=== PATIENT | female | born 1965 | race American Indian/Alaskan Native ===

== ENCOUNTER 2019-01-12 12:55 | Observation (INO) | payer BC ==
--- NOTE | 2019-01-12 13:55 | Event Note ---
ED Screening Note Date of service: 01/12/19 Time: 13:51 ED Screening Note: 53 y/o female comes in for chest pain intermittent sharp pain for weeks migraine since last night n/v this morning. This initial assessment/diagnostic orders/clinical plan/treatment(s) is/are subject to change based on patients health status, clinical progression and re- assessment by fellow clinical providers in the ED. Further treatment and workup at subsequent clinical providers discretion. Patient/guardian urged not to elope from the ED as their condition may be serious if not clinically assessed and managed. Initial orders include:
[2019-01-12 14:37] LABS: BUN/Creatinine Ratio 11; Blood Urea Nitrogen 9 mg/dL (7-17); Calcium 9.5 mg/dL (8.4-10.2); Hemolysis Index 6
[2019-01-12] MEDS ORDERED: NACL 0.9% 1000 ML 1,000 ML IV ONE (15:25)
[2019-01-12] MEDS ORDERED: ZOFRAN IV ONE (15:25)
[2019-01-12] MEDS ORDERED: DILAUDID IV ONE ×2 (15:25→16:51)
--- NOTE | 2019-01-12 15:30 | Emergency Department Report ---
ED Headache HPI - General Chief Complaint: Chest Pain Stated Complaint: N/D SEVERE HEADACHE/CHEST PAIN Time Seen by Provider: 01/12/19 13:51 Source: patient Exam Limitations: no limitations - History of Present Illness Initial Comments: 53 year old female with a past medical history of migraines, fibromyalgia, mitral valve prolapse, IBS, depression, and previous hypertension (not currently on meds) presents to the Hospital complaining of headache similar to previous migraines since last night and intermittent chest pain. Patient states that since last night she has had a 10/10 throbbing frontal and bitemporal headache. Photophobia mild blurred vision reported. Positive nausea and vomiting. Patient takes a IM injection of a migraine medication monthly and is under care of a neurologist. She has declined offer for Botox injections. Patient also states for the last 2 weeks she has had intermittent sharp pain in her head followed by left facial droop. 2 weeks ago she had 3 episodes lasting 1 day. Both the headache and the face lasted all day and then spontaneously resolved. Today she did not have the shooting pain but did have her typical migraine headache with associated left-sided facial droop that lasted 2 hours before resolving. Patient denies any other focal weakness or numbness. Just complains of intermittent mid sternal chest pain without shortness of breath, calf tenderness, leg edema, or history of PE/DVT. Allergies/Adverse Reactions: Allergies calcium carbonate [From DHEA] Allergy (Verified 08/26/15 18:13) Rash ketorolac tromethamine [From Toradol] Allergy (Verified 08/26/15 18:13) Bleeding levofloxacin [From Levaquin] Allergy (Verified 01/29/16 02:38) Rash magnesium Allergy (Verified 02/03/16 18:15) Rash metoclopramide HCl [From Reglan] Allergy (Verified 08/26/15 18:13) Hives prasterone (DHEA) [From DHEA] Allergy (Verified 08/26/15 18:13) Rash prochlorperazine [From Compazine] Allergy (Verified 08/26/15 18:13) Unknown prochlorperazine edisylate [From Compazine] Allergy (Verified 08/26/15 18:13) Unknown prednisone Adverse Reaction (Verified 08/26/15 18:13) Hives Home Medications: Ambulatory Orders Verapamil ER [Calan SR] 180 mg PO QDAY 12/30/14 Benzonatate [Tessalon Perles] 100 mg PO Q8HR 08/26/15 Clarithromycin [Biaxin] 250 mg PO Q12H 08/26/15 Cyclobenzaprine [Flexeril] 10 mg PO TID PRN #15 tablet 02/03/16 ED Review of Systems ROS: Stated complaint: N/D SEVERE HEADACHE/CHEST PAIN Other details as noted in HPI Comment: All other systems reviewed and negative ED Past Medical Hx - Past Medical History Previous Medical History?: Yes Hx Hypertension: Yes Hx Congestive Heart Failure: No Hx Diabetes: No Hx Sickle Cell Disease: No Hx Headaches / Migraines: Yes Hx Kidney Stones: Yes Hx Psychiatric Treatment: Yes (DEPRESSION) Hx Asthma: No Hx COPD: No Hx HIV: No Additional medical history: MVP, fibromyalgia. IBS - Surgical History Hx Cholecystectomy: Yes Hx Appendectomy: Yes Additional Surgical History: Hysterectomy. KIDNEY STONES REMOVED - Social History Smoking Status: Never Smoker Substance Use Type: None - Medications Home Medications: Home Medications Medication Instructions Recorded Confirmed Last Taken Type Verapamil ER [Calan SR] 180 mg PO QDAY 12/30/14 08/26/15 1 Day Ago History ~08/25/15 Benzonatate [Tessalon Perles] 100 mg PO Q8HR 08/26/15 08/26/15 08/26/15 History Clarithromycin [Biaxin] 250 mg PO Q12H 08/26/15 08/26/15 08/26/15 History Cyclobenzaprine [Flexeril] 10 mg PO TID PRN #15 tablet 02/03/16 Unknown Rx ED Physical Exam - General Limitations: No Limitations - Other Other exam information: General: No acute distress Head: Atraumatic normocephalic Eyes: Normal appearance, pupils equal reactive to light, extraocular movements intact ENT: Normal oropharynx Neck: Normal appearance, no C-spine tenderness, no meningismus Chest: Clear to auscultation bilaterally, no wheezes, rales, or crackles Cardiovascular: Regular rate and rhythm Abdomen: Soft, nondistended, nontender, no rebound or guarding, normal bowel sounds Back: Normal inspection, nontender Extremity: Normal inspection, no deformity, full range of motion Neuro: Alert and oriented 3, speech clear, no gross motor or sensory deficit, [id number] function intact Psychiatric: Normal affect Skin: No rash, warmth, or erythema ED Course Vital Signs 01/12/19 01/12/19 13:51 17:50 Temperature 98.2 F Pulse Rate 67 84 Respiratory 18 17 Rate Blood Pressure 144/72 Blood Pressure 142/63 [Left] O2 Sat by Pulse 100 98 Oximetry - Consultations Consultation #1: 01/12/19 15:40 case d/w tele neuro, rec admission for TIA workup ED Medical Decision Making - Lab Data Result diagrams: 01/12/19 15:31 01/12/19 14:02 Lab Results 01/12/19 01/12/19 01/12/19 Range/Units 14:02 15:31 15:31 WBC 5.4 (4.5-11.0) K/mm3 RBC 4.24 (3.65-5.03) M/mm3 Hgb 12.6 (10.1-14.3) gm/dl Hct 37.6 (30.3-42.9) % MCV 89 (79-97) fl MCH 30 (28-32) pg MCHC 34 (30-34) % RDW 13.4 (13.2-15.2) % Plt Count 230 (140-440) K/mm3 Lymph % (Auto) 29.7 (13.4-35.0) % [place] % (Auto) 9.2 H (0.0-7.3) % Eos % (Auto) 1.6 (0.0-4.3) % Baso % (Auto) 0.9 (0.0-1.8) % Lymph # 1.6 (1.2-5.4) K/mm3 [place] # 0.5 (0.0-0.8) K/mm3 Eos # 0.1 (0.0-0.4) K/mm3 Baso # 0.0 (0.0-0.1) K/mm3 Seg Neutrophils % 58.6 (40.0-70.0) % Seg Neutrophils # 3.2 (1.8-7.7) K/mm3 PT 13.0 (12.2-14.9) Sec. INR 1.01 (0.87-1.13) APTT 26.9 (24.2-36.6) Sec. Thrombin Time 17.5 (15.1-19.6) Sec. Sodium 141 (137-145) mmol/L Potassium 3.9 (3.6-5.0) mmol/L Chloride 102.6 (98-107) mmol/L Carbon Dioxide 28 (22-30) mmol/L Anion Gap 14 mmol/L BUN 9 (7-17) mg/dL Creatinine 0.8 (0.7-1.2) mg/dL Estimated GFR > 60 ml/min BUN/Creatinine Ratio 11 % Glucose 88 (65-100) mg/dL Calcium 9.5 (8.4-10.2) mg/dL Troponin T < 0.010 (0.00-0.029) ng/mL - EKG Data -: EKG Interpreted by Fl EKG shows normal: sinus rhythm, axis (qrs 23), QRS complexes (qrsd 77), ST-T waves (no stemi) Rate: normal (67) - Radiology Data Radiology results: report reviewed CHEST 2 VIEWS INDICATION: chest pain. COMPARISON: None FINDINGS: Support devices: None. Heart: Within normal limits. Lungs/pleura: No acute air space or interstitial disease. No pneumothorax. Additional findings: None. IMPRESSION: No acute findings. CT head/brain wo con INDICATION / CLINICAL INFORMATION: 53 years Female; villatoro, intermittent left face droop. TECHNIQUE: Routine CT head without contrast. All CT scans at this location are performed using CT dose reduction for ALARA by means of automated exposure control. COMPARISON: None. FINDINGS: BRAIN / INTRACRANIAL CONTENTS: No acute hemorrhage, mass effect, midline shift, hydrocephalus, or acute, large territorial infarct. No chronic infarct or focal atrophy. Normal brain volume and ventricular/sulcal size for age. No significant white matter abnormality. CRANIOCERVICAL JUNCTION: Tonsillar ectopia seen. No cervical medullary junction compression. ORBITS: No significant abnormality of visualized orbits. SINUSES / MASTOIDS: No significant abnormality of the visualized paranasal sinuses or mastoid air cells. ADDITIONAL FINDINGS: None. IMPRESSION: 1. No focal mass, hemorrhage, hydrocephalus, or acute, large territorial infarct. - Medical Decision Making Patient presents to migraine headache and has a history of transient intermittent left-sided facial droop for the past 2 weeks. Neurologic symptoms appear to occur with her headache and I suspect that patient has a complex migraine. Case discussed with neurologist. Since patient does not have a previous history of neurologic deficit associated with her migraines, he recommends admission to the hospital for T and a workup. Aspirin provided after CT head resulted. No neurologic deficits in the ED. Hospitalist informed for admission. For headache patient received Dilaudid, Zofran, and subsequent Benadryl due to pruritus - Differential Diagnosis complex migraine, migraine, TIA, CVA Critical Care Time: No Critical care attestation.: If time is entered above; I have spent that time in minutes in the direct care of this critically ill patient, excluding procedure time. ED Disposition Clinical Impression: Fibromyalgia, Transient neurologic deficit, Migraine Disposition: OP ADMIT IP TO THIS HOSP Is pt being admited?: Yes Does the pt Need Aspirin: Yes Condition: Stable Time of Disposition: 18:11 (Dr golden/hosp) - Assessment Assessment Interval: Baseline - Level of Consciousness 1a. Level of Consciousness: alert/keenly responsive - LOC Questions 1b. LOC Questions: answers both correctly - LOC Command 1c. LOC Commands: performs tasks correctly - Best Gaze 2. Best Gaze: normal - Visual 3. Visual: no visual loss - Facial Palsy 4. Facial Palsy: normal symmetrical movement - Motor Arm 5a. Motor Arm Left: no drift 5b. Motor Arm Right: no drift - Motor Leg 6a. Motor Leg Left: no drift 6b. Motor Leg Right: no drift - Limb Ataxia 7. Limb Ataxia: absent - Sensory 8. Sensory: normal - Best Language 9. Best Language: no aphasia - Dysarthria 10. Dysarthria: normal - Extinction and Inattention 11. Extinction/Inattention: no abnormality - Scoring Total Score: 0 Stroke Severity: No Stroke Symptoms
[2019-01-12 15:43] LABS: Basophils % (Auto) 0.9 % (0.0-1.8); Eosinophils # (Auto) 0.1 K/mm3 (0.0-0.4); Eosinophils % (Auto) 1.6 % (0.0-4.3); Hematocrit 37.6 % (30.3-42.9); Hemoglobin 12.6 gm/dl (10.1-14.3); Lymphocytes # (Auto) 1.6 K/mm3 (1.2-5.4); Lymphocytes % (Auto) 29.7 % (13.4-35.0); Mean Corpuscular HGB Conc 34 % (30-34); Mean Corpuscular Volume 89 fl (79-97); Monocytes # (Auto) 0.5 K/mm3 (0.0-0.8); Monocytes % (Auto) 9.2 % (0.0-7.3); Platelet Count 230 K/mm3 (140-440); Red Blood Count 4.24 M/mm3 (3.65-5.03); Red Cell Distribution Width 13.4 % (13.2-15.2)
[2019-01-12 15:56] LABS: INR 1.01 (0.87-1.13)
[2019-01-12] MEDS ORDERED: BENADRYL IV ONE ×3 (15:57→16:51)
[2019-01-12 15:58] LABS: Partial Thromboplastin Time 26.9 Sec. (24.2-36.6); Thrombin Time 17.5 Sec. (15.1-19.6)
--- NOTE | 2019-01-12 16:00 | XRay Report ---
CHEST 2 VIEWS INDICATION: chest pain. COMPARISON: None FINDINGS: Support devices: None. Heart: Within normal limits. Lungs/pleura: No acute air space or interstitial disease. No pneumothorax. Additional findings: None. IMPRESSION: No acute findings. Signer Name: Héctor Leigh Jr, MD Signed: 01/12/2019 3:56 PM Workstation Name: [id number]
--- NOTE | 2019-01-12 18:05 | Cat Scan Report ---
CT head/brain wo con INDICATION / CLINICAL INFORMATION: 53 years Female; villatoro, intermittent left face droop. TECHNIQUE: Routine CT head without contrast. All CT scans at this location are performed using CT dos e reduction for ALARA by means of automated exposure control. COMPARISON: None. FINDINGS: BRAIN / INTRACRANIAL CONTENTS: No acute hemorrhage, mass effect, midline shift, hydrocephalus, or acu te, large territorial infarct. No chronic infarct or focal atrophy. Normal brain volume and ventricul ar/sulcal size for age. No significant white matter abnormality. CRANIOCERVICAL JUNCTION: Tonsillar ectopia seen. No cervical medullary junction compression. ORBITS: No significant abnormality of visualized orbits. SINUSES / MASTOIDS: No significant abnormality of the visualized paranasal sinuses or mastoid air serafin ls. ADDITIONAL FINDINGS: None. IMPRESSION: 1. No focal mass, hemorrhage, hydrocephalus, or acute, large territorial infarct. Signer Name: René Collins MD, III Signed: 01/12/2019 6:00 PM Workstation Name: [id number]
[2019-01-12] MEDS ORDERED: ASPIRIN PO ONE (18:09)
[2019-01-12] MEDS ORDERED: NORCO 5/325 PO PRN (22:00)
[2019-01-12] MEDS ORDERED: SODIUM CHLORIDE FLUSH SYRINGE 10 ML IV PRN (22:00)
[2019-01-12] MEDS ORDERED: TYLENOL PO PRN (22:00)
[2019-01-12] MEDS: SODIUM CHLORIDE FLUSH SYRINGE 10 ML IV SCH (23:05)
[2019-01-12] MEDS: NACL 0.9% 1000 ML 1,000 ML IV SCH (23:06)
[2019-01-12] MEDS: PEPCID IV SCH (23:13)
[2019-01-12] MEDS: ZOFRAN IV PRN (23:16)
[2019-01-12] MEDS: DILAUDID IV PRN (23:17)
[2019-01-12] MEDS: TOPAMAX PO SCH (23:19)
[2019-01-12] MEDS: BENADRYL PO PRN (23:24)
[2019-01-13] MEDS: DILAUDID IV PRN ×3 (04:12→12:47)
[2019-01-13 05:08] LABS: Basophils % (Auto) 0.8 % (0.0-1.8); Eosinophils # (Auto) 0.1 K/mm3 (0.0-0.4); Eosinophils % (Auto) 2.8 % (0.0-4.3); Hematocrit 35.1 % (30.3-42.9); Lymphocytes # (Auto) 1.8 K/mm3 (1.2-5.4); Lymphocytes % (Auto) 40.8 % (13.4-35.0); Mean Corpuscular HGB Conc 34 % (30-34); Mean Corpuscular Volume 89 fl (79-97); Monocytes # (Auto) 0.4 K/mm3 (0.0-0.8); Platelet Count 229 K/mm3 (140-440); Red Blood Count 3.95 M/mm3 (3.65-5.03); Red Cell Distribution Width 13.2 % (13.2-15.2)
[2019-01-13 05:41] LABS: Alanine Aminotransferase 8 units/L (7-56); Albumin 3.6 g/dL (3.9-5); BUN/Creatinine Ratio 7; Blood Urea Nitrogen 6 mg/dL (7-17); Calcium 8.8 mg/dL (8.4-10.2); Hemolysis Index 1
--- NOTE | 2019-01-13 07:00 | History and Physical Report ---
History of Present Illness Date of examination: 01/12/19 Date of admission: 01/12/19 18:11 Chief complaint: Severe Left facial weakness 2 days History of present illness: 53 year old female with a past medical history of migraines, fibromyalgia comes in for severe Left facial throbbing pain recurrently.Has been having Migraine headaches for 20 years and has 4 to 6 episodes per month. Has a facial droop about which she is concerned.Resolved now.No weakness in Upp er and lower extremities. Past Medical History Previous Medical History?: Yes Hypertension: Yes Headaches / Migraines: Yes Kidney Stones: Yes Psychiatric Treatment: Yes (DEPRESSION) Additional medical history: MVP, fibromyalgia. IBS Surgical History Cholecystectomy: Yes Appendectomy: Yes Hysterectomy. KIDNEY STONES REMOVED Social History Smoking Status: Never Smoker Substance Use Type: None Family History Htn Medications Home Medications: Home Medications Medication Instructions Recorded Confirmed Last Taken Type Verapamil ER [Calan SR] 180 mg PO QDAY 12/30/14 08/26/15 1 Day Ago History ~08/25/15 Benzonatate [Tessalon Perles] 100 mg PO Q8HR 08/26/15 08/26/15 08/26/15 History Clarithromycin [Biaxin] 250 mg PO Q12H 08/26/15 08/26/15 08/26/15 History Cyclobenzaprine [Flexeril] 10 mg PO TID PRN #15 tablet 02/03/16 Unknown Rx Review of Systems ROS: Stated complaint: N/D SEVERE HEADACHE/CHEST PAIN Other details as noted in HPI Comment: All other systems reviewed and negative Medications and Allergies Allergies Allergy/AdvReac Type Severity Reaction Status Date / Time calcium carbonate [From DHEA] Allergy Rash Verified 08/26/15 18:13 ketorolac tromethamine Allergy Bleeding Verified 08/26/15 18:13 [From Toradol] levofloxacin [From Levaquin] Allergy Rash Verified 01/29/16 02:38 magnesium Allergy Rash Verified 02/03/16 18:15 metoclopramide HCl Allergy Hives Verified 08/26/15 18:13 [From Reglan] prasterone (DHEA) [From DHEA] Allergy Rash Verified 08/26/15 18:13 prochlorperazine Allergy Unknown Verified 08/26/15 18:13 [From Compazine] prochlorperazine edisylate Allergy Unknown Verified 08/26/15 18:13 [From Compazine] prednisone AdvReac Hives Verified 08/26/15 18:13 Home Medications Medication Instructions Recorded Confirmed Last Taken Type Linaclotide [Linzess] 145 mg PO QDAY 01/12/19 01/12/19 01/11/19 History Active Meds: Active Medications Acetaminophen (Tylenol) 650 mg PO Q4H PRN PRN Reason: Pain MILD(1-3)/Fever >100.5/YEE Acetaminophen/Hydrocodone Bitart ([place] 5/325) 2 each PO Q6H PRN PRN Reason: Pain, Moderate (4-6) Diphenhydramine HCl (Benadryl) 25 mg PO Q8H PRN PRN Reason: Itching Last Admin: 01/12/19 23:24 Dose: 25 mg Documented by: Famotidine (Pepcid) 20 mg IV BID [facility] Last Admin: 01/12/19 23:13 Dose: 20 mg Documented by: Hydromorphone HCl (Dilaudid) 1 mg IV Q3H PRN PRN Reason: Pain , Severe (7-10) Last Admin: 01/13/19 04:12 Dose: 1 mg Documented by: Sodium Chloride (Nacl 0.9% 1000 Ml) 1,000 mls @ 75 mls/hr IV DIRECT [facility] Last Admin: 01/12/19 23:06 Dose: 75 mls/hr Documented by: Miscellaneous Medication (Linaclotide [Linzess]) 145 mg PO QDAY [facility] Ondansetron HCl (Zofran) 4 mg IV Q8H PRN PRN Reason: Nausea And Vomiting Last Admin: 01/12/19 23:16 Dose: 4 mg Documented by: Sodium Chloride (Sodium Chloride Flush Syringe 10 Ml) 10 ml IV BID [facility] Last Admin: 01/12/19 23:05 Dose: 10 ml Documented by: Sodium Chloride (Sodium Chloride Flush Syringe 10 Ml) 10 ml IV PRN PRN PRN Reason: LINE FLUSH Topiramate (Topamax) 25 mg PO Q12HR [facility] Last Admin: 01/12/19 23:19 Dose: 25 mg Documented by: Exam - Constitutional Vitals: Temp Pulse Resp BP Pulse Ox 97.7 F 66 20 118/56 97 01/13/19 05:39 01/13/19 05:39 01/13/19 05:39 01/13/19 05:39 01/13/19 05:39 General appearance: Present: no acute distress, well-nourished - EENT Eyes: Present: PERRL ENT: hearing intact, clear oral mucosa - Neck Neck: Present: supple, normal ROM - Respiratory Respiratory effort: normal Respiratory: bilateral: CTA - Cardiovascular Heart rate: 78 Rhythm: regular Heart Sounds: Present: S1 & S2. Absent: rub, click - Extremities Extremities: no ischemia, pulses intact, pulses symmetrical, No edema Peripheral Pulses: within normal limits - Abdominal General gastrointestinal: Present: soft, non-tender, non-distended, normal bowel sounds Female genitourinary: Present: normal - Rectal Rectal Exam: deferred - Integumentary Integumentary: Present: clear, warm, dry - Musculoskeletal Musculoskeletal: gait normal, strength equal bilaterally - Psychiatric Psychiatric: appropriate mood/affect, intact judgment & insight - Neurologic Neurologic: CNII-XII intact, moves all extremities - Allied Health Allied health notes reviewed: nursing, case management Results - Labs CBC & Chem 7: 01/13/19 04:58 01/13/19 04:58 Labs: Laboratory Last Values WBC 4.4 K/mm3 (4.5-11.0) L 01/13/19 04:58 RBC 3.95 M/mm3 (3.65-5.03) 01/13/19 04:58 Hgb 12.0 gm/dl (10.1-14.3) 01/13/19 04:58 Hct 35.1 % (30.3-42.9) 01/13/19 04:58 MCV 89 fl (79-97) 01/13/19 04:58 MCH 30 pg (28-32) 01/13/19 04:58 MCHC 34 % (30-34) 01/13/19 04:58 RDW 13.2 % (13.2-15.2) 01/13/19 04:58 Plt Count 229 K/mm3 (140-440) 01/13/19 04:58 Lymph % (Auto) 40.8 % (13.4-35.0) H 01/13/19 04:58 [place] % (Auto) 9.0 % (0.0-7.3) H 01/13/19 04:58 Eos % (Auto) 2.8 % (0.0-4.3) 01/13/19 04:58 Baso % (Auto) 0.8 % (0.0-1.8) 01/13/19 04:58 Lymph # 1.8 K/mm3 (1.2-5.4) 01/13/19 04:58 [place] # 0.4 K/mm3 (0.0-0.8) 01/13/19 04:58 Eos # 0.1 K/mm3 (0.0-0.4) 01/13/19 04:58 Baso # 0.0 K/mm3 (0.0-0.1) 01/13/19 04:58 Seg Neutrophils % 46.6 % (40.0-70.0) 01/13/19 04:58 Seg Neutrophils # 2.1 K/mm3 (1.8-7.7) 01/13/19 04:58 PT 13.0 Sec. (12.2-14.9) 01/12/19 15:31 INR 1.01 (0.87-1.13) 01/12/19 15:31 APTT 26.9 Sec. (24.2-36.6) 01/12/19 15:31 17.5 Sec. (15.1-19.6) 01/12/19 15:31 Sodium 141 mmol/L (137-145) 01/13/19 04:58 Potassium 4.4 mmol/L (3.6-5.0) 01/13/19 04:58 Chloride 104.1 mmol/L (98-107) 01/13/19 04:58 Carbon Dioxide 31 mmol/L (22-30) H 01/13/19 04:58 10 mmol/L 01/13/19 04:58 BUN 6 mg/dL (7-17) L 01/13/19 04:58 0.9 mg/dL (0.7-1.2) 01/13/19 04:58 Estimated GFR > 60 ml/min 01/13/19 04:58 7 % 01/13/19 04:58 Glucose 98 mg/dL (65-100) 01/13/19 04:58 5.0 % (4-6) 01/12/19 23:38 Calcium 8.8 mg/dL (8.4-10.2) 01/13/19 04:58 0.20 mg/dL (0.1-1.2) 01/13/19 04:58 AST 17 units/L (5-40) 01/13/19 04:58 ALT 8 units/L (7-56) 01/13/19 04:58 96 units/L (35-129) 01/13/19 04:58 < 0.010 ng/mL (0.00-0.029) 01/12/19 14:02 6.1 g/dL (6.3-8.2) L 01/13/19 04:58 3.6 g/dL (3.9-5) L 01/13/19 04:58 1.4 % 01/13/19 04:58 - Imaging and Cardiology EKG: report reviewed Chest x-ray: report reviewed (NAF) CT Scan - head: report reviewed (NAF) Assessment and Plan Advance Directives: Yes (Full code) VTE prophylaxis?: Chemical Plan of care discussed with patient/family: Yes - Patient Problems (1) Migraine Current Visit: Yes Status: Acute Qualifiers: Status migrainosus presence: with status migrainosus Intractability: intractable Plan to address problem: Symptomatic treatment Started on Topamax and IV Dilaudid Neuro consult (2) HTN (hypertension) Current Visit: Yes Status: Chronic Qualifiers: Hypertension type: essential hypertension Qualified Code(s): I10 - E ssential (primary) hypertension Plan to address problem: Cont antihyupertensives (3) Depression Current Visit: Yes Status: Chronic Qualifiers: Depression Type: unspecified Qualified Code(s): F32.9 - Major depressive disorder, single episode, unspecified Plan to address problem: Cont antidepressant (4) DVT prophylaxis Current Visit: Yes Status: Acute Plan to address problem: On Lovenox and GI prophylaxis
[2019-01-13] MEDS: BENADRYL PO PRN ×2 (08:35→16:35)
[2019-01-13] MEDS: ZOFRAN IV PRN ×2 (08:51→17:28)
[2019-01-13] MEDS ORDERED: LINACLOTIDE 145 MG PO SCH (10:00)
[2019-01-13] MEDS: PEPCID IV SCH (12:36)
[2019-01-13] MEDS: NACL 0.9% 1000 ML 1,000 ML IV SCH (12:36)
[2019-01-13] MEDS: TOPAMAX PO SCH (12:37)
[2019-01-13] MEDS: SODIUM CHLORIDE FLUSH SYRINGE 10 ML IV SCH (12:37)
[2019-01-13] MEDS ORDERED: ULTRAM PO PRN (13:42)
[2019-01-13] MEDS ORDERED: FIORICET PO PRN (13:42)
--- NOTE | 2019-01-13 14:01 | Magnetic Resonance Report ---
MRI BRAIN 01/13/2019 INDICATION / CLINICAL INFORMATION: right facial palsy. TECHNIQUE: Multiplanar, multisequence MR images of the brain were obtained. COMPARISON: CT brain 01/12/2019 FINDINGS: BRAIN / INTRACRANIAL CONTENTS: Unenhanced MR images of the brain demonstrate no evidence of acute abn ormality. Ventricles and sulci are normal in size and shape. There is no evidence of ischemic injury, demyelination, hemorrhage, or mass. There are no abnormal ex tra-axial fluid collections. EXTRACRANIAL: Unremarkable CRANIOCERVICAL JUNCTION: No significant abnormality. VASCULAR FLOW-VOIDS: No significant abnormality. IMPRESSION: Negative unenhanced MRI of the brain. Signer Name: Fredo Eller MD Signed: 01/13/2019 1:57 PM Workstation Name: [id number]
--- NOTE | 2019-01-13 14:57 | Discharge Summary ---
Providers - Providers Date of Admission: 01/12/19 18:11 Date of discharge: 01/13/19 Attending physician: MARGARITA PEÑA 01/12/19 22:00 Consult to Physician [CONS] Routine Comment: Consulting Provider: LU RAO Physician Instructions: Reason For Exam: complex migraine [facility] Condition: Stable Pertinent studies: head CT brain MRI Hospital course: Discharge diagnosis: (1) Migraine Current Visit: Yes Status: Acute Qualifiers: Status migrainosus presence: with status migrainosus Intractability: intractable Plan to address problem: Symptomatic treatment Started on Topamax and IV Dilaudid Neuro consult (2) HTN (hypertension) Current Visit: Yes Status: Chronic Qualifiers: Hypertension type: essential hypertension Qualified Code(s): I10 - Essential (primary) hypertension Plan to address problem: Cont antihyupertensives (3) Depression Current Visit: Yes Status: Chronic Qualifiers: Depression Type: unspecified Qualified Code(s): F32.9 - Major depressive disorder, single episode, unspecified Plan to address problem: Cont antidepressant (4) DVT prophylaxis Current Visit: Yes Status: Acute Plan to address problem: On Lovenox and GI prophylaxis Disposition: DC-01 TO HOME OR SELFCARE Time spent for discharge: 34 minutes Core Measure Documentation - Palliative Care Palliative Care/ Comfort Measures: Not Applicable - Core Measures Any of the following diagnoses?: none Exam - Constitutional Vitals: Temp Pulse Resp BP Pulse Ox 97.7 F 66 20 118/56 97 01/13/19 05:39 01/13/19 05:39 01/13/19 05:39 01/13/19 05:39 01/13/19 05:39 Plan Activity: advance as tolerated Weight Bearing Status: Weight Bear as Tolerated Diet: low fat, low salt [facility] [Primary Care Provider[facility] - 3-5 Days LIZETH ENAMORADO MD [Staff Physician] - 7 Days Prescriptions: Butalb/Acetamin/Caff 50-325-40 [Fioricet 50-325-40] 2 tab PO Q4H PRN #14 tablet PRN Reason: Headache Topiramate [Topamax] 25 mg PO Q12HR #14 tablet
[2019-01-13 17:51] VITALS: BP 134/53
--- NOTE | 2019-01-13 18:23 | Consultation ---
History of Present Illness Consult date: 01/13/19 Chief complaint: hemiplegic migraine History of present illness: This is a 53 YO F who presented to the ED with headche and patient reported fa erlin marie but ED staff says it was resolved by the time they saw her. Pt with long history of headaches, has seen multiple providers. Is seeing a provider now who would like to do Botox but pt refuses. Saw a doctor who was prescribing Dilaudid which she feels worked best for her. Past History Past Medical History: other (migraines) Past Surgical History: appendectomy, cholecystectomy, Other (kidney strones) Social history: no significant social history Family history: hypertension Medications and Allergies Allergies Allergy/AdvReac Type Severity Reaction Status Date / Time calcium carbonate [From DHEA] Allergy Rash Verified 08/26/15 18:13 ketorolac tromethamine Allergy Bleeding Verified 08/26/15 18:13 [From Toradol] levofloxacin [From Levaquin] Allergy Rash Verified 01/29/16 02:38 magnesium Allergy Rash Verified 02/03/16 18:15 metoclopramide HCl Allergy Hives Verified 08/26/15 18:13 [From Reglan] prasterone (DHEA) [From DHEA] Allergy Rash Verified 08/26/15 18:13 prochlorperazine Allergy Unknown Verified 08/26/15 18:13 [From Compazine] prochlorperazine edisylate Allergy Unknown Verified 08/26/15 18:13 [From Compazine] prednisone AdvReac Hives Verified 08/26/15 18:13 Home Medications Medication Instructions Recorded Confirmed Last Taken Type Linaclotide [Linzess] 145 mg PO QDAY 01/12/19 01/12/19 01/11/19 History Butalb/Acetamin/Caff 50-325-40 2 tab PO Q4H PRN #14 tablet 01/13/19 Unknown Rx [Fioricet 50-325-40] Topiramate [Topamax] 25 mg PO Q12HR #14 tablet 01/13/19 Unknown Rx Active Meds: Active Medications Acetaminophen (Tylenol) 650 mg PO Q4H PRN PRN Reason: Pain MILD(1-3)/Fever >100.5/YEE Acetaminophen/Butalbital/Caffeine (Fioricet) 2 tab PO Q4H PRN PRN Reason: Headache Acetaminophen/Hydrocodone Bitart ([place] 5/325) 2 each PO Q6H PRN PRN Reason: Pain, Moderate (4-6) Last Admin: 01/13/19 16:35 Dose: 2 each Documented by: Diphenhydramine HCl (Benadryl) 25 mg PO Q8H PRN PRN Reason: Itching Last Admin: 01/13/19 16:35 Dose: 25 mg Documented by: Famotidine (Pepcid) 20 mg IV BID [facility] Last Admin: 01/13/19 12:36 Dose: 20 mg Documented by: Sodium Chloride (Nacl 0.9% 1000 Ml) 1,000 mls @ 75 mls/hr IV DIRECT [facility] Last Admin: 01/13/19 12:36 Dose: 75 mls/hr Documented by: Miscellaneous Medication (Linaclotide [Linzess]) 145 mg PO QDAY [facility] Ondansetron HCl (Zofran) 4 mg IV Q8H PRN PRN Reason: Nausea And Vomiting Last Admin: 01/13/19 17:28 Dose: 4 mg Documented by: Sodium Chloride (Sodium Chloride Flush Syringe 10 Ml) 10 ml IV BID [facility] Last Admin: 01/13/19 12:37 Dose: 10 ml Documented by: Sodium Chloride (Sodium Chloride Flush Syringe 10 Ml) 10 ml IV PRN PRN PRN Reason: LINE FLUSH Topiramate (Topamax) 25 mg PO Q12HR [facility] Last Admin: 01/13/19 12:37 Dose: 25 mg Documented by: Tramadol HCl (Ultram) 50 mg PO Q6H PRN PRN Reason: BREAKTHRU Pain, Moderate (4-6) Review of Systems Neurological: migraines Physical Examination - Vital Signs Vital Signs: Vital Signs Temp Pulse Resp BP Pulse Ox 98.2 F 67 18 144/72 100 01/12/19 13:51 01/12/19 13:51 01/12/19 13:51 01/12/19 13:51 01/12/19 13:51 - Constitutional General appearance: comfortable - EENT EENT: Present: mucous membranes moist - Respiratory Respiratory: Present: lungs clear, normal breath sounds - Cardiovascular Cardiovascular: Present: regular rate - Gastrointestinal Gastrointestinal: Present: normoactive bowel sounds - Integumentary Integumentary: Present: normal - Neurologic Cranial nerve examination: PERRL, EOMI, V1/V2/V3 grossly intact, face symmetric, tongue midline Sensorimotor examination: intact Motor examination - right side: 5/5: biceps, triceps, wrist flexion, wrist extension, mold finisher, hip flexors, knee extensors, dorsiflexion, toe extension (EHL), plantarflexion Motor examination - left side: 5/5: biceps, triceps, wrist flexion, wrist extension, mold finisher, hip flexors, knee extensors, dorsiflexion, toe extension (EHL), plantarflexion Reflex and gait examination: intact Reflexes: 1+: ankle, bicep, knee, tricep Results - Laboratory Findings CBC and BMP: 01/13/19 04:58 01/13/19 04:58 Abnormal Lab Findings: Abnormal Labs 01/12/19 01/13/19 01/13/19 15:31 04:58 04:58 WBC 4.4 L Lymph % (Auto) 40.8 H [place] % (Auto) 9.2 H 9.0 H Carbon Dioxide 31 H BUN 6 L Total Protein 6.1 L Albumin 3.6 L - Diagnostic Findings Additional findings: MRI Brain nothing acute Assessment and Plan This is a 53 YO F who presented tot he ED with headache and facial droop, now resolved. Presentation c/w hemiplegic migraine. REcommend: Pt has tried AED's, amytriptyline, etc. Everything mentioned she has had and "doesn't work for her". Pt has a neurologist, should follow up with her outpatient. Recommend against narcotics, cause rebound headache. fine for discharge from a neuro standpoint.
== END 2019-01-13 19:00 | disposition home or self-care (01) ==
LOC: ED 12:55 → 3A 18:11 → INTOOBSV 18:11
PROVIDERS: ADMIT Internal Medicine; ATTEND Internal Medicine
DX: G43.909 Migraine, unspecified, not intractable, without status migrainosus (principal); M79.7 Fibromyalgia; F32.9 Major depressive disorder, single episode, unspecified; I10 Essential (primary) hypertension
CPT/HCPCS: 36415; 70450; 70551; 71046; 80048; 80053; 83036; 84484; 85025; 85610; 85670; 85730; 93005; 93010; 96374; 96375; 96376; 99285; G0378; J1170; J1200; J2405; J7030

== ENCOUNTER 2019-02-18 15:04 | Emergency (ER) | payer BC ==
--- NOTE | 2019-02-18 15:14 | Event Note ---
ED Screening Note Date of service: 02/18/19 Time: 15:10 ED Screening Note: pt presents cc of low headache, nausea, vomitting Last Neurologist appt : Jan 29 This initial assessment/diagnostic orders/clinical plan/treatment(s) is/are subject to change based on patients health status, clinical progression and re- assessment by fellow clinical providers in the ED. Further treatment and workup at subsequent clinical providers discretion. Patient/guardian urged not to elope from the ED as their condition may be serious if not clinically assessed and managed. Initial orders include: ACC eval IV meds
[2019-02-18] MEDS ORDERED: MORPHINE 4 MG/1 ML INJ IV ONE (17:36)
[2019-02-18] MEDS ORDERED: ONDANSETRON 4 MG/2 ML INJ IV ONE (17:36)
[2019-02-18] MEDS ORDERED: SODIUM CHLORIDE 0.9% 1000 ML 1,000 ML IV ONE (17:36)
[2019-02-18 18:16] LABS: Bilirubin,Urine NEG (Negative); Blood,Urine NEG (Negative); Color,Urine Yellow (Yellow); Mucus,Urine 3+ /HPF; Protein,Urine <15 mg/dL mg/dL (Negative)
[2019-02-18 18:20] LABS: Basophils % (Auto) 0.7 % (0.0-1.8); Eosinophils # (Auto) 0.1 K/mm3 (0.0-0.4); Eosinophils % (Auto) 1.4 % (0.0-4.3); Hematocrit 39.6 % (30.3-42.9); Hemoglobin 12.9 gm/dl (10.1-14.3); Lymphocytes # (Auto) 1.6 K/mm3 (1.2-5.4); Lymphocytes % (Auto) 28.2 % (13.4-35.0); Mean Corpuscular HGB Conc 33 % (30-34); Mean Corpuscular Volume 90 fl (79-97); Monocytes # (Auto) 0.4 K/mm3 (0.0-0.8); Monocytes % (Auto) 7.6 % (0.0-7.3); Platelet Count 237 K/mm3 (140-440); Red Cell Distribution Width 13.3 % (13.2-15.2)
[2019-02-18 18:40] LABS: Alanine Aminotransferase 11 units/L (7-56); Albumin 4.2 g/dL (3.9-5); BUN/Creatinine Ratio 11; Blood Urea Nitrogen 9 mg/dL (7-17); Calcium 9.3 mg/dL (8.4-10.2); Hemolysis Index 11
[2019-02-18] MEDS ORDERED: diphenhydrAMINE 50 MG/ML VIAL IV ONE (18:56)
--- NOTE | 2019-02-18 20:29 | Emergency Department Report ---
ED Headache HPI - General Chief Complaint: Headache Stated Complaint: NAUSEA/VOMITING/HEADACHE/BACK PAIN Time Seen by Provider: 02/18/19 15:09 - History of Present Illness Initial Comments: This is a 53-year-old female nontoxic, well nourished in appearance, no acute signs of distress presents to the ED with c/o of acute on chronic headache. Patient describes headache as diffuse with level of 3 out of 10. Patient denies thunderclap headache. Patient denies any radiation of pain. Patient denies any head trauma. Patient denies any visual changes. Patient denies worse headache. Patient stated that darkness makes headache better and bright lights make the headache worse. Stated has some nausea and vomiting. Patient denies any numbness, tingling, fever, chills, chest pain, shortness of breath, stiff neck. Patient denies facial drooping or one sided weakness. Patient denies any radiation of pain. Timing/Duration: episodic Quality: mild, achy Head Injury Location: other (diffuse) Recent Head Trauma: occasional headaches Associated Symptoms: nausea/vomiting. denies: confusion, fatigue, facial pain, fever/chills, flushing, loss of consciousness, nasal congestion, nasal drainage, numbness in legs/feet, rash, seizures, sinus infection, stiff neck, vision changes, weakness Allergies/Adverse Reactions: Allergies calcium carbonate [From DHEA] Allergy (Verified 08/26/15 18:13) Rash ketorolac tromethamine [From Toradol] Allergy (Verified 08/26/15 18:13) Bleeding levofloxacin [From Levaquin] Allergy (Verified 01/29/16 02:38) Rash magnesium Allergy (Verified 02/03/16 18:15) Rash metoclopramide HCl [From Reglan] Allergy (Verified 08/26/15 18:13) Hives prasterone (DHEA) [From DHEA] Allergy (Verified 08/26/15 18:13) Rash prochlorperazine [From Compazine] Allergy (Verified 08/26/15 18:13) Unknown prochlorperazine edisylate [From Compazine] Allergy (Verified 08/26/15 18:13) Unknown prednisone Adverse Reaction (Verified 08/26/15 18:13) Hives Home Medications: Ambulatory Orders Linaclotide [Linzess] 145 mg PO QDAY 01/12/19 Butalb/Acetamin/Caff 50-325-40 [Fioricet 50-325-40] 2 tab PO Q4H PRN #14 tablet 01/13/19 Topiramate [Topamax] 25 mg PO Q12HR #14 tablet 01/13/19 Butalb/Acetaminophen/Caffeine [Fioricet 50-300-40 mg CAP] 1 cap PO Q6HR PRN #12 cap 02/18/19 ED Review of Systems ROS: Stated complaint: NAUSEA/VOMITING/HEADACHE/BACK PAIN Other details as noted in HPI Constitutional: denies: chills, fever Eyes: denies: eye pain, eye discharge, vision change ENT: denies: ear pain, throat pain Respiratory: denies: cough, shortness of breath, wheezing Cardiovascular: denies: chest pain, palpitations Endocrine: no symptoms reported Gastrointestinal: nausea, vomiting. denies: abdominal pain, diarrhea Genitourinary: denies: urgency, dysuria, discharge Musculoskeletal: denies: back pain, joint swelling, arthralgia Skin: denies: rash, lesions Neurological: headache. denies: weakness, paresthesias Psychiatric: denies: anxiety, depression Hematological/Lymphatic: denies: easy bleeding, easy bruising ED Past Medical Hx - Past Medical History Hx Hypertension: Yes Hx Congestive Heart Failure: No Hx Diabetes: No Hx Sickle Cell Disease: No Hx Headaches / Migraines: Yes Hx Kidney Stones: Yes Hx Psychiatric Treatment: Yes (DEPRESSION) Hx Asthma: Yes Hx COPD: No Hx HIV: No Additional medical history: MVP, fibromyalgia. IBS - Surgical History Hx Cholecystectomy: Yes Hx Appendectomy: Yes Additional Surgical History: Hysterectomy. KIDNEY STONES REMOVED - Social History Smoking Status: Never Smoker Substance Use Type: None - Medications Home Medications: Home Medications Medication Instructions Recorded Confirmed Last Taken Type Linaclotide [Linzess] 145 mg PO QDAY 01/12/19 01/12/19 01/11/19 History Butalb/Acetamin/Caff 50-325-40 2 tab PO Q4H PRN #14 tablet 01/13/19 Unknown Rx [Fioricet 50-325-40] Topiramate [Topamax] 25 mg PO Q12HR #14 tablet 01/13/19 Unknown Rx Butalb/Acetaminophen/Caffeine 1 cap PO Q6HR PRN #12 cap 02/18/19 Unknown Rx [Fioricet 50-300-40 mg CAP] ED Physical Exam - General Limitations: No Limitations General appearance: alert, in no apparent distress - Head Head exam: Present: atraumatic, normocephalic - Eye Eye exam: Present: normal appearance, PERRL, EOMI - Neck Neck exam: Present: normal inspection, full ROM. Absent: tenderness, meningismus, lymphadenopathy - Extremities Exam Extremities exam: Present: normal inspection, full ROM, normal capillary refill. Absent: tenderness - Back Exam Back exam: Present: normal inspection, full ROM. Absent: tenderness, CVA tende rness (R), CVA tenderness (L), muscle spasm, paraspinal tenderness, vertebral tenderness, rash noted - Neurological Exam Neurological exam: Present: alert, oriented X3, normal gait - Expanded Neurological Exam Expanded Patient oriented to: Present: person, place, time Cranial nerves: EOM's Intact: Normal, Facial Sensation: Normal Cerebellar function: Finger to Nose: Normal Motor strength exam: RUE: 5, LUE: 5, RLE: 5, LLE: 5 Best Eye Response (Seda): (4) open spontaneously Best Motor Response (Seda): (6) obeys commands Best Verbal Response (Seda): (5) oriented [place] Total: 15 - Psychiatric Psychiatric exam: Present: normal affect, normal mood - Skin Skin exam: Present: warm, dry, intact, normal color. Absent: rash ED Course Vital Signs 02/18/19 18:20 Respiratory 18 Rate - Reevaluation(s) Reevaluation #1: 02/18/19 20:27 Patient is speaking in full sentences with no signs of distress noted. ED Medical Decision Making - Lab Data Result diagrams: 02/18/19 18:08 02/18/19 18:08 - Medical Decision Making This is a 53-year-old female that presents with headache and n/v. Patient is stable and was examined by me. Patient is neurologically stable. There is no stiff neck or neck pain. Vital signs are stable. Patient is afebrile. Patient received medical treatment and 1 L of normal saline which the patient stated that headache has subsided and resolved. Patient was instructed not to operate any machinery after discharged due to drowsiness of Benadryl. Patient stated that a family member will drive patient home. Labs unremarkable. Patient is discharged with Fioricet. Patient was referred to Follow-up with a primary care/neurologist doctor in 3-5 days or if symptoms worsen and continue return to emergency room as soon as possible. At time of discharge, the patient does not seem toxic or ill in appearance. No acute signs of distress noted. Patient agrees to discharge treatment plan of care. No further questions noted by the patient. Critical care attestation.: If time is entered above; I have spent that time in minutes in the direct care of this critically ill patient, excluding procedure time. ED Disposition Clinical Impression: Migraine Qualifiers: Migraine type: unspecified Status migrainosus presence: without status migrainosus Intractability: not intractable Qualified Code(s): G43.909 - Migraine, unspecified, not intractable, without status migrainosus Nausea and vomiting Qualifiers: Vomiting type: unspecified Vomiting Intractability: non-intractable Qualified Code(s): R11.2 - Nausea with vomiting, unspecified Disposition: DC- TO HOME OR SELFCARE Is pt being admited?: No Does the pt Need Aspirin: No Condition: Stable Instructions: Acute Headache (ED), Acute Nausea and Vomiting (ED) Additional Instructions: Follow-up with a primary care/neurologist doctor in 3-5 days or if symptoms worsen and continue return to emergency room as soon as possible. Prescriptions: Butalb/Acetaminophen/Caffeine [Fioricet 50-300-40 mg CAP] 1 cap PO Q6HR PRN #12 cap PRN Reason: Pain , Severe (7-10) Referrals: PRIMARY MD RODRIGO [Primary Care Provider] - 3-5 Days LIZETH MORRISON MD [Staff Physician] - 3-5 Days [facility] [Outside] - 3-5 Days [facility] [Outside] - 3-5 Days Forms: Work/School Release Form(ED)
[2019-02-18 20:40] VITALS: BP 154/67
== END 2019-02-18 20:53 | disposition home or self-care (01) ==
LOC: ED 15:04
DX: G43.909 Migraine, unspecified, not intractable, without status migrainosus (principal); R11.2 Nausea with vomiting, unspecified; I10 Essential (primary) hypertension; F32.9 Major depressive disorder, single episode, unspecified; J45.909 Unspecified asthma, uncomplicated; I34.1 Nonrheumatic mitral (valve) prolapse; M79.7 Fibromyalgia; K58.9 Irritable bowel syndrome, unspecified; Z90.49 Acquired absence of other specified parts of digestive tract; Z87.442 Personal history of urinary calculi; Z90.710 Acquired absence of both cervix and uterus; Z79.899 Other long term (current) drug therapy; Z88.8 Allergy status to other drugs, medicaments and biological substances
CPT/HCPCS: 36415; 80053; 81001; 83690; 85025; 87086; 96361; 96374; 96375; 99283; J1200; J2270; J2405; J7030

== ENCOUNTER 2019-04-02 14:41 | Emergency (ER) | payer BC, MEDICAID ==
--- NOTE | 2019-04-02 15:08 | Emergency Department Report ---
Blank Doc - Documentation Documentation: 53-year-old female that presents with heart palpations and vomiting. Stated has also a migraine. This initial assessment/diagnostic orders/clinical plan/treatment(s) is/are subject to change based on patient's health status, clinical progression and re- assessment by fellow clinical providers in the ED. Further treatment and workup at subsequent clinical providers discretion. Patient/guardians urged not to elope from the ED as their condition may be serious if not clinically assessed and managed. Initial orders include: 1- Patient sent to MAIN ED for further evaluation and treatment 2- labs 3- EKG 4- CXR
[2019-04-02 15:40] LABS: Basophils % (Auto) 0.7 % (0.0-1.8); Eosinophils # (Auto) 0.1 K/mm3 (0.0-0.4); Eosinophils % (Auto) 1.6 % (0.0-4.3); Hematocrit 39.8 % (30.3-42.9); Hemoglobin 13.2 gm/dl (10.1-14.3); Lymphocytes # (Auto) 1.3 K/mm3 (1.2-5.4); Lymphocytes % (Auto) 28.4 % (13.4-35.0); Mean Corpuscular HGB Conc 33 % (30-34); Mean Corpuscular Volume 91 fl (79-97); Monocytes # (Auto) 0.4 K/mm3 (0.0-0.8); Monocytes % (Auto) 8.5 % (0.0-7.3); Platelet Count 232 K/mm3 (140-440); Red Blood Count 4.39 M/mm3 (3.65-5.03); Red Cell Distribution Width 13.3 % (13.2-15.2)
[2019-04-02 15:54] LABS: INR 0.95 (0.87-1.13)
[2019-04-02 16:01] LABS: Alanine Aminotransferase 9 units/L (7-56); Albumin 4.3 g/dL (3.9-5); BUN/Creatinine Ratio 13; Blood Urea Nitrogen 10 mg/dL (7-17); Calcium 9.5 mg/dL (8.4-10.2); Hemolysis Index 19
--- NOTE | 2019-04-02 16:25 | XRay Report ---
CHEST 2 VIEWS INDICATION / CLINICAL INFORMATION: Chest Pain. Palpitations. History of TIA and hypertension. COMPARISON: 01/12/2019. FINDINGS: SUPPORT DEVICES: None. HEART / MEDIASTINUM: The heart size and pulmonary vasculature are normal. The aorta is normal in viki pato. LUNGS / PLEURA: No significant pulmonary or pleural abnormality. No pneumothorax. ADDITIONAL FINDINGS: No significant additional findings. IMPRESSION: No acute abnormality or significant change. Signer Name: Og Newman MD Signed: 04/02/2019 4:21 PM Workstation Name: [id number]
[2019-04-02] MEDS ORDERED: BUTORPHANOL 2 MG/1 ML INJ IV PRN (20:55)
[2019-04-02] MEDS ORDERED: diphenhydrAMINE 50 MG/ML VIAL IV ONE (20:55)
[2019-04-02] MEDS ORDERED: ONDANSETRON 4 MG/2 ML INJ IV ONE ×2 (20:56→22:26)
[2019-04-02 22:01] LABS: Bilirubin,Urine NEG (Negative); Blood,Urine NEG (Negative); Color,Urine Yellow (Yellow); Hyaline Casts,Urine 2 /LPF; Mucus,Urine 3+ /HPF
[2019-04-02] MEDS ORDERED: MORPHINE 4 MG/1 ML INJ IV ONE (22:26)
--- NOTE | 2019-04-02 22:38 | Emergency Department Report ---
ED General Adult HPI - General Chief complaint: Arrhythmia/Palpitations Stated complaint: PALPITATIONS/MIGRANE/NAUSEA Time Seen by Provider: 04/02/19 15:07 Source: patient Mode of arrival: Ambulatory Limitations: No Limitations - History of Present Illness Initial comments: The patient presents to the emergency department with a chief complaint of heart palpitations and a migraine headache for the last day. Patient states she has a history of migraine headaches and also states that she has multiple allergies to medications that are used to treat migraines. Patient denies as being the worse headache of her life and is typical to prior migraines. She denies chest pain, shortness breath, or headache. -: Sudden Location: head Radiation: non-radiation Severity scale (0 -10): 8 Quality: other (throbbing) Consistency: constant Improves with: none Worsens with: none Associated Symptoms: denies other symptoms Treatments Prior to Arrival: none - Related Data Home Medications Medication Instructions Recorded Confirmed Last Taken Linaclotide [Linzess] 145 mg PO QDAY 01/12/19 01/12/19 01/11/19 Previous Rx's Medication Instructions Recorded Last Taken Type Butalb/Acetamin/Caff 50-325-40 2 tab PO Q4H PRN #14 tablet 01/13/19 Unknown Rx [Fioricet 50-325-40] Topiramate [Topamax] 25 mg PO Q12HR #14 tablet 01/13/19 Unknown Rx Butalb/Acetaminophen/Caffeine 1 cap PO Q6HR PRN #12 cap 02/18/19 Unknown Rx [Fioricet 50-300-40 mg CAP] Butalb/Acetamin/Caff 50-325-40 1 tab PO Q6HR PRN #24 tab 04/02/19 Unknown Rx [Fioricet] Allergies Allergy/AdvReac Type Severity Reaction Status Date / Time calcium carbonate [From DHEA] Allergy Rash Verified 08/26/15 18:13 ketorolac tromethamine Allergy Bleeding Verified 08/26/15 18:13 [From Toradol] levofloxacin [From Levaquin] Allergy Rash Verified 01/29/16 02:38 magnesium Allergy Rash Verified 02/03/16 18:15 metoclopramide HCl Allergy Hives Verified 08/26/15 18:13 [From Reglan] prasterone (DHEA) [From DHEA] Allergy Rash Verified 08/26/15 18:13 prochlorperazine Allergy Unknown Verified 08/26/15 18:13 [From Compazine] prochlorperazine edisylate Allergy Unknown Verified 08/26/15 18:13 [From Compazine] prednisone AdvReac Hives Verified 08/26/15 18:13 ED Review of Systems ROS: Stated complaint: PALPITATIONS/MIGRANE/NAUSEA Other details as noted in HPI Comment: All other systems reviewed and negative Constitutional: denies: chills, fever Eyes: denies: eye pain, eye discharge, vision change ENT: denies: ear pain, throat pain Respiratory: denies: cough, shortness of breath, wheezing Cardiovascular: denies: chest pain, palpitations Endocrine: no symptoms reported Gastrointestinal: denies: abdominal pain, nausea, diarrhea Genitourinary: denies: urgency, dysuria, discharge Musculoskeletal: denies: back pain, joint swelling, arthralgia Skin: denies: rash, lesions Neurological: denies: headache, weakness, paresthesias Psychiatric: denies: anxiety, depression Hematological/Lymphatic: denies: easy bleeding, easy bruising ED Past Medical Hx - Past Medical History Previous Medical History?: Yes Hx Hypertension: Yes Hx Congestive Heart Failure: No Hx Diabetes: No Hx Sickle Cell Disease: No Hx Headaches / Migraines: Yes Hx Kidney Stones: Yes Hx Psychiatric Treatment: Yes (DEPRESSION) Hx Asthma: Yes Hx COPD: No Hx HIV: No Additional medical history: MVP, fibromyalgia. IBS - Surgical History Past Surgical History?: Yes Hx Cholecystectomy: Yes Hx Appendectomy: Yes Additional Surgical History: Hysterectomy. KIDNEY STONES REMOVED - Social History Smoking Status: Never Smoker Substance Use Type: None - Medications Home Medications: Home Medications Medication Instructions Recorded Confirmed Last Taken Type Linaclotide [Linzess] 145 mg PO QDAY 01/12/19 01/12/19 01/11/19 History Butalb/Acetamin/Caff 50-325-40 2 tab PO Q4H PRN #14 tablet 01/13/19 Unknown Rx [Fioricet 50-325-40] Topiramate [Topamax] 25 mg PO Q12HR #14 tablet 01/13/19 Unknown Rx Butalb/Acetaminophen/Caffeine 1 cap PO Q6HR PRN #12 cap 02/18/19 Unknown Rx [Fioricet 50-300-40 mg CAP] Butalb/Acetamin/Caff 50-325-40 1 tab PO Q6HR PRN #24 tab 04/02/19 Unknown Rx [Fioricet] ED Physical Exam - General Limitations: No Limitations General appearance: alert, in no apparent distress - Head Head exam: Present: atraumatic, normocephalic - Eye Eye exam: Present: normal appearance, PERRL, EOMI - ENT ENT exam: Present: mucous membranes moist - Neck Neck exam: Present: normal inspection - Respiratory Respiratory exam: Present: normal lung sounds bilaterally. Absent: respiratory distress, wheezes, rales - Cardiovascular Cardiovascular Exam: Present: regular rate, normal rhythm. Absent: systolic murmur, diastolic murmur, rubs, gallop - GI/Abdominal GI/Abdominal exam: Present: soft, normal bowel sounds. Absent: distended, tenderness - Extremities Exam Extremities exam: Present: normal inspection - Back Exam Back exam: Present: normal inspection - Neurological Exam Neurological exam: Present: alert, oriented X3, CN II-XII intact. Absent: motor sensory deficit - Psychiatric Psychiatric exam: Present: normal affect, normal mood - Skin Skin exam: Present: warm, dry, intact, normal color. Absent: rash ED Course Vital Signs 04/02/19 04/02/19 04/02/19 15:07 20:44 21:00 Temperature 98.2 F 98.3 F Pulse Rate 89 83 Respiratory 18 16 Rate Blood Pressure 127/72 141/85 Blood Pressure 141/85 [Left] O2 Sat by Pulse 100 100 100 Oximetry 04/02/19 21:30 Temperature Pulse Rate Respiratory Rate Blood Pressure 137/76 Blood Pressure [Left] O2 Sat by Pulse 99 Oximetry ED Medical Decision Making - Lab Data Result diagrams: 04/02/19 15:19 04/02/19 15:19 Lab Results 04/02/19 04/02/19 04/02/19 Range/Units 15:19 15: 15: WBC 4.4 L (4.5-11.0) K/mm3 RBC 4.39 (3.65-5.03) M/mm3 Hgb 13.2 (10.1-14.3) gm/dl Hct 39.8 (30.3-42.9) % MCV 91 (79-97) fl MCH 30 (28-32) pg MCHC 33 (30-34) % RDW 13.3 (13.2-15.2) % Plt Count 232 (140-440) K/mm3 Lymph % (Auto) 28.4 (13.4-35.0) % [place] % (Auto) 8.5 H (0.0-7.3) % Eos % (Auto) 1.6 (0.0-4.3) % Baso % (Auto) 0.7 (0.0-1.8) % Lymph # 1.3 (1.2-5.4) K/mm3 [place] # 0.4 (0.0-0.8) K/mm3 Eos # 0.1 (0.0-0.4) K/mm3 Baso # 0.0 (0.0-0.1) K/mm3 Seg Neutrophils % 60.8 (40.0-70.0) % Seg Neutrophils # 2.7 (1.8-7.7) K/mm3 PT 12.6 (12.2-14.9) Sec. INR 0.95 (0.87-1.13) APTT 27.0 (24.2-36.6) Sec. Sodium 140 (137-145) mmol/L Potassium 4.0 (3.6-5.0) mmol/L Chloride 102.7 (98-107) mmol/L Carbon Dioxide 24 (22-30) mmol/L Anion Gap 17 mmol/L BUN 10 (7-17) mg/dL Creatinine 0.8 (0.7-1.2) mg/dL Estimated GFR > 60 ml/min BUN/Creatinine Ratio 13 % Glucose 90 (65-100) mg/dL Calcium 9.5 (8.4-10.2) mg/dL Total Bilirubin 0.30 (0.1-1.2) mg/dL AST 16 (5-40) units/L ALT 9 (7-56) units/L Alkaline Phosphatase 99 (35-129) units/L Troponin T < 0.010 (0.00-0.029) ng/mL Total Protein 7.1 (6.3-8.2) g/dL Albumin 4.3 (3.9-5) g/dL Albumin/Globulin Ratio 1.5 % Lipase 20 (13-60) units/L Urine Color (Yellow) Urine Turbidity (Clear) Urine pH (5.0-7.0) Ur Specific [place] (1.003-1.030) Urine Protein (Negative) mg/dL Urine Glucose (UA) (Negative) mg/dL Urine Ketones (Negative) mg/dL Urine Blood (Negative) Urine Nitrite (Negative) Urine Bilirubin (Negative) Urine Urobilinogen (<2.0) mg/dL Ur Leukocyte Esterase (Negative) Urine WBC (Auto) (0.0-6.0) /HPF Urine RBC (Auto) (0.0-6.0) /HPF U Epithel Cells (Auto) (0-13.0) /HPF Hyaline Casts /LPF Urine Mucus /HPF 04/02/19 04/02/19 Range/Units 17:40 Unknown WBC (4.5-11.0) K/mm3 RBC (3.65-5.03) M/mm3 Hgb (10.1-14.3) gm/dl Hct (30.3-42.9) % MCV (79-97) fl MCH (28-32) pg MCHC (30-34) % RDW (13.2-15.2) % Plt Count (140-440) K/mm3 Lymph % (Auto) (13.4-35.0) % [place] % (Auto) (0.0-7.3) % Eos % (Auto) (0.0-4.3) % Baso % (Auto) (0.0-1.8) % Lymph # (1.2-5.4) K/mm3 [place] # (0.0-0.8) K/mm3 Eos # (0.0-0.4) K/mm3 Baso # (0.0-0.1) K/mm3 Seg Neutrophils % (40.0-70.0) % Seg Neutrophils # (1.8-7.7) K/mm3 PT (12.2-14.9) Sec. INR (0.87-1.13) APTT (24.2-36.6) Sec. Sodium (137-145) mmol/L Potassium (3.6-5.0) mmol/L Chloride (98-107) mmol/L Carbon Dioxide (22-30) mmol/L Anion Gap mmol/L BUN (7-17) mg/dL Creatinine (0.7-1.2) mg/dL Estimated GFR ml/min BUN/Creatinine Ratio % Glucose (65-100) mg/dL Calcium (8.4-10.2) mg/dL Total Bilirubin (0.1-1.2) mg/dL AST (5-40) units/L ALT (7-56) units/L Alkaline Phosphatase (35-129) units/L Troponin T < 0.010 (0.00-0.029) ng/mL Total Protein (6.3-8.2) g/dL Albumin (3.9-5) g/dL Albumin/Globulin Ratio % Lipase (13-60) units/L Urine Color Yellow (Yellow) Urine Turbidity Clear (Clear) Urine pH 5.0 (5.0-7.0) Ur Specific [place] 1.027 (1.003-1.030) Urine Protein 30 mg/dl (Negative) mg/dL Urine Glucose (UA) Neg (Negative) mg/dL Urine Ketones Tr (Negative) mg/dL Urine Blood Neg (Negative) Urine Nitrite Neg (Negative) Urine Bilirubin Neg (Negative) Urine Urobilinogen 2.0 (<2.0) mg/dL Ur Leukocyte Esterase Sm (Negative) Urine WBC (Auto) 6.0 (0.0-6.0) /HPF Urine RBC (Auto) 4.0 (0.0-6.0) /HPF U Epithel Cells (Auto) 3.0 (0-13.0) /HPF Hyaline Casts 2 /LPF Urine Mucus 3+ /HPF Critical care attestation.: If time is entered above; I have spent that time in minutes in the direct care of this critically ill patient, excluding procedure time. ED Disposition Clinical Impression: Headache, Palpitations Disposition: DC-01 TO HOME OR SELFCARE Is pt being admited?: No Does the pt Need Aspirin: No Condition: Stable Instructions: Acute Headache (ED), Palpitations (ED) Additional Instructions: return if worse Referrals: RJ PLUMMER MD [Primary Care Provider] - 3-5 Days Time of Disposition: 22:37
[2019-04-02 23:15] VITALS: BP 155/79
== END 2019-04-02 23:18 | disposition home or self-care (01) ==
LOC: ED 14:41
DX: G43.909 Migraine, unspecified, not intractable, without status migrainosus (principal); R00.2 Palpitations; I10 Essential (primary) hypertension; F32.9 Major depressive disorder, single episode, unspecified; J45.909 Unspecified asthma, uncomplicated; Z88.1 Allergy status to other antibiotic agents; Z88.8 Allergy status to other drugs, medicaments and biological substances; Z79.899 Other long term (current) drug therapy; Z88.5 Allergy status to narcotic agent; Z87.442 Personal history of urinary calculi; Z90.49 Acquired absence of other specified parts of digestive tract; Z90.710 Acquired absence of both cervix and uterus
CPT/HCPCS: 36415; 71046; 80053; 81001; 83690; 84484; 85025; 85610; 85730; 93005; 93010; 96374; 96375; 96376; 99284; J0595; J1200; J2270; J2405

== ENCOUNTER 2019-04-11 01:09 | Emergency (ER) | payer BC, MEDICAID ==
[2019-04-11 02:49] LABS: Bilirubin,Urine NEG (Negative); Blood,Urine NEG (Negative); Color,Urine Yellow (Yellow); Mucus,Urine 2+ /HPF; Protein,Urine <15 mg/dL mg/dL (Negative)
[2019-04-11 03:22] LABS: Basophils % (Auto) 0.4 % (0.0-1.8); Eosinophils # (Auto) 0.1 K/mm3 (0.0-0.4); Eosinophils % (Auto) 0.9 % (0.0-4.3); Hematocrit 39.4 % (30.3-42.9); Hemoglobin 13.2 gm/dl (10.1-14.3); Lymphocytes # (Auto) 1.1 K/mm3 (1.2-5.4); Mean Corpuscular HGB Conc 33 % (30-34); Mean Corpuscular Volume 90 fl (79-97); Monocytes # (Auto) 0.4 K/mm3 (0.0-0.8); Monocytes % (Auto) 6.4 % (0.0-7.3); Platelet Count 235 K/mm3 (140-440); Red Blood Count 4.36 M/mm3 (3.65-5.03); Red Cell Distribution Width 13.2 % (13.2-15.2)
[2019-04-11 03:37] LABS: Alanine Aminotransferase 10 units/L (7-56); Albumin 4.5 g/dL (3.9-5); BUN/Creatinine Ratio 9; Blood Urea Nitrogen 7 mg/dL (7-17); Calcium 9.8 mg/dL (8.4-10.2); Hemolysis Index 6
[2019-04-11] MEDS ORDERED: ONDANSETRON 4 MG/2 ML INJ IV ONE (07:36)
[2019-04-11] MEDS ORDERED: MORPHINE 4 MG/1 ML INJ IV ONE (07:36)
--- NOTE | 2019-04-11 07:44 | Emergency Department Report ---
ED Abdominal Pain HPI - General Chief Complaint: Abdominal Pain Stated Complaint: ABD PAIN, [place] Time Seen by Provider: 04/11/19 07:13 Source: patient Mode of arrival: Ambulatory Limitations: No Limitations - History of Present Illness Initial Comments: 53-year-old -Indian female patient with history of hypertension, fibromyalgia, and migraines presents with complaints of nausea/vomiting and abdominal pain starting last night. She states that she was diagnosed with diverticulitis one week ago. She denies being treated with antibiotics. She denies in the hematemesis, coffee-ground emesis, hematochezia, melena, fevers/chills, diarrhea/constipation, or dysuria/urinary frequency. She states the pain is a 10/10 in severity and states the pain is in her upper and lower abdomen. MD Complaint: abdominal pain -: Sudden Location: LLQ, RLQ, epigastric Migration to: no migration Severity: severe Severity scale (0 -10): 10 Quality: sharp Consistency: constant Improves With: nothing Associated Symptoms: nausea. denies: diarrhea - Related Data Home Medications Medication Instructions Recorded Confirmed Last Taken Linaclotide [Linzess] 145 mg PO QDAY 01/12/19 01/12/19 01/11/19 Previous Rx's Medication Instructions Recorded Last Taken Type Butalb/Acetamin/Caff 50-325-40 2 tab PO Q4H PRN #14 tablet 01/13/19 Unknown Rx [Fioricet 50-325-40] Topiramate [Topamax] 25 mg PO Q12HR #14 tablet 01/13/19 Unknown Rx Butalb/Acetaminophen/Caffeine 1 cap PO Q6HR PRN #12 cap 02/18/19 Unknown Rx [Fioricet 50-300-40 mg CAP] Butalb/Acetamin/Caff 50-325-40 1 tab PO Q6HR PRN #24 tab 04/02/19 Unknown Rx [Fioricet] Famotidine [Pepcid] 20 mg PO BID #20 tablet 04/11/19 Unknown Rx Ondansetron [Zofran Odt] 4 mg PO Q8HR PRN #15 tab.rapdis 04/11/19 Unknown Rx Allergies Allergy/AdvReac Type Severity Reaction Status Date / Time calcium carbonate [From DHEA] Allergy Rash Verified 08/26/15 18:13 ketorolac tromethamine Allergy Bleeding Verified 08/26/15 18:13 [From Toradol] levofloxacin [From Levaquin] Allergy Rash Verified 01/29/16 02:38 magnesium Allergy Rash Verified 02/03/16 18:15 metoclopramide HCl Allergy Hives Verified 08/26/15 18:13 [From Reglan] prasterone (DHEA) [From DHEA] Allergy Rash Verified 08/26/15 18:13 prochlorperazine Allergy Unknown Verified 08/26/15 18:13 [From Compazine] prochlorperazine edisylate Allergy Unknown Verified 08/26/15 18:13 [From Compazine] prednisone AdvReac Hives Verified 08/26/15 18:13 ED Review of Systems ROS: Stated complaint: ABD PAIN, NV Other details as noted in HPI Constitutional: denies: chills, fever Eyes: denies: vision change ENT: denies: throat pain Respiratory: denies: cough, shortness of breath Cardiovascular: denies: chest pain Endocrine: no symptoms reported Gastrointestinal: as per HPI Genitourinary: denies: dysuria, frequency, hematuria, discharge Musculoskeletal: denies: back pain Skin: denies: rash, lesions Neurological: denies: headache, weakness, paresthesias Psychiatric: denies: anxiety, depression Hematological/Lymphatic: denies: easy bleeding, easy bruising ED Past Medical Hx - Past Medical History Previous Medical History?: Yes Hx Hypertension: Yes Hx Congestive Heart Failure: No Hx Diabetes: No Hx Sickle Cell Disease: No Hx Headaches / Migraines: Yes Hx Kidney Stones: Yes Hx Psychiatric Treatment: Yes (DEPRESSION) Hx Asthma: Yes Hx COPD: No Hx HIV: No Additional medical history: MVP, fibromyalgia. IBS - Surgical History Past Surgical History?: Yes Hx Cholecystectomy: Yes Hx Appendectomy: Yes Additional Surgical History: Hysterectomy. KIDNEY STONES REMOVED - Social History Smoking Status: Never Smoker Substance Use Type: None - Medications Home Medications: Home Medications Medication Instructions Recorded Confirmed Last Taken Type Linaclotide [Linzess] 145 mg PO QDAY 01/12/19 01/12/19 01/11/19 History Butalb/Acetamin/Caff 50-325-40 2 tab PO Q4H PRN #14 tablet 01/13/19 Unknown Rx [Fioricet 50-325-40] Topiramate [Topamax] 25 mg PO Q12HR #14 tablet 01/13/19 Unknown Rx Butalb/Acetaminophen/Caffeine 1 cap PO Q6HR PRN #12 cap 02/18/19 Unknown Rx [Fioricet 50-300-40 mg CAP] Butalb/Acetamin/Caff 50-325-40 1 tab PO Q6HR PRN #24 tab 04/02/19 Unknown Rx [Fioricet] Famotidine [Pepcid] 20 mg PO BID #20 tablet 04/11/19 Unknown Rx Ondansetron [Zofran Odt] 4 mg PO Q8HR PRN #15 tab.rapdis 04/11/19 Unknown Rx ED Physical Exam - General Limitations: No Limitations General appearance: alert, in no apparent distress - Head Head exam: Present: atraumatic, normocephalic - Eye Eye exam: Present: normal appearance. Absent: scleral icterus - ENT ENT exam: Present: normal exam, normal orophraynx - Neck Neck exam: Present: normal inspection - Respiratory Respiratory exam: Present: normal lung sounds bilaterally. Absent: respiratory distress - Cardiovascular Cardiovascular Exam: Present: regular rate, normal rhythm. Absent: systolic murmur, diastolic murmur, rubs, gallop - GI/Abdominal GI/Abdominal exam: Present: soft, tenderness (LLQ and epigastric regions), normal bowel sounds. Absent: distended, guarding, rebound, rigid, mass - Rectal Rectal exam: Present: deferred - Extremities Exam Extremities exam: Present: normal inspection. Absent: pedal edema - Back Exam Back exam: Present: full ROM - Neurological Exam Neurological exam: Present: alert, oriented X3 - Psychiatric Psychiatric exam: Present: normal affect, normal mood - Skin Skin exam: Present: warm, dry, intact, normal color. Absent: rash ED Course Vital Signs 04/11/19 04/11/19 01:32 08:15 Temperature 97.4 F L 97.8 F Pulse Rate 98 H 79 Respiratory 20 16 Rate Blood Pressure 158/88 Blood Pressure 141/86 [Right] O2 Sat by Pulse 100 100 Oximetry ED Medical Decision Making - Lab Data Result diagrams: 04/11/19 02:33 04/11/19 02:33 Lab Results 04/11/19 04/11/19 04/11/19 Range/Units 02:33 02:33 04:06 WBC 6.0 (4.5-11.0) K/mm3 RBC 4.36 (3.65-5.03) M/mm3 Hgb 13.2 (10.1-14.3) gm/dl Hct 39.4 (30.3-42.9) % MCV 90 (79-97) fl MCH 30 (28-32) pg MCHC 33 (30-34) % RDW 13.2 (13.2-15.2) % Plt Count 235 (140-440) K/mm3 Lymph % (Auto) 18.0 (13.4-35.0) % [place] % (Auto) 6.4 (0.0-7.3) % Eos % (Auto) 0.9 (0.0-4.3) % Baso % (Auto) 0.4 (0.0-1.8) % Lymph # 1.1 L (1.2-5.4) K/mm3 [place] # 0.4 (0.0-0.8) K/mm3 Eos # 0.1 (0.0-0.4) K/mm3 Baso # 0.0 (0.0-0.1) K/mm3 Seg Neutrophils % 74.3 H (40.0-70.0) % Seg Neutrophils # 4.5 (1.8-7.7) K/mm3 Sodium 142 (137-145) mmol/L Potassium 4.2 (3.6-5.0) mmol/L Chloride 102.7 (98-107) mmol/L Carbon Dioxide 28 (22-30) mmol/L Anion Gap 16 mmol/L BUN 7 (7-17) mg/dL Creatinine 0.8 (0.7-1.2) mg/dL Estimated GFR > 60 ml/min BUN/Creatinine Ratio 9 % Glucose 108 H (65-100) mg/dL Calcium 9.8 (8.4-10.2) mg/dL Total Bilirubin 0.40 (0.1-1.2) mg/dL AST 17 (5-40) units/L ALT 10 (7-56) units/L Alkaline Phosphatase 101 (35-129) units/L Total Protein 7.3 (6.3-8.2) g/dL Albumin 4.5 (3.9-5) g/dL Albumin/Globulin Ratio 1.6 % Lipase 12 L (13-60) units/L Urine Color (Yellow) Urine Turbidity (Clear) Urine pH (5.0-7.0) Ur Specific [place] (1.003-1.030) Urine Protein (Negative) mg/dL Urine Glucose (UA) (Negative) mg/dL Urine Ketones (Negative) mg/dL Urine Blood (Negative) Urine Nitrite (Negative) Urine Bilirubin (Negative) Urine Urobilinogen (<2.0) mg/dL Ur Leukocyte Esterase (Negative) Urine WBC (Auto) (0.0-6.0) /HPF Urine RBC (Auto) (0.0-6.0) /HPF U Epithel Cells (Auto) (0-13.0) /HPF Urine Mucus /HPF 04/11/19 Range/Units Unknown WBC (4.5-11.0) K/mm3 RBC (3.65-5.03) M/mm3 Hgb (10.1-14.3) gm/dl Hct (30.3-42.9) % MCV (79-97) fl MCH (28-32) pg MCHC (30-34) % RDW (13.2-15.2) % Plt Count (140-440) K/mm3 Lymph % (Auto) (13.4-35.0) % [place] % (Auto) (0.0-7.3) % Eos % (Auto) (0.0-4.3) % Baso % (Auto) (0.0-1.8) % Lymph # (1.2-5.4) K/mm3 [place] # (0.0-0.8) K/mm3 Eos # (0.0-0.4) K/mm3 Baso # (0.0-0.1) K/mm3 Seg Neutrophils % (40.0-70.0) % Seg Neutrophils # (1.8-7.7) K/mm3 Sodium (137-145) mmol/L Potassium (3.6-5.0) mmol/L Chloride (98-107) mmol/L Carbon Dioxide (22-30) mmol/L Anion Gap mmol/L BUN (7-17) mg/dL Creatinine (0.7-1.2) mg/dL Estimated GFR ml/min BUN/Creatinine Ratio % Glucose (65-100) mg/dL Calcium (8.4-10.2) mg/dL Total Bilirubin (0.1-1.2) mg/dL AST (5-40) units/L ALT (7-56) units/L Alkaline Phosphatase (35-129) units/L Total Protein (6.3-8.2) g/dL Albumin (3.9-5) g/dL Albumin/Globulin Ratio % Lipase (13-60) units/L Urine Color Yellow (Yellow) Urine Turbidity Clear (Clear) Urine pH 6.0 (5.0-7.0) Ur Specific [place] 1.015 (1.003-1.030) Urine Protein <15 mg/dl (Negative) mg/dL Urine Glucose (UA) Neg (Negative) mg/dL Urine Ketones Neg (Negative) mg/dL Urine Blood Neg (Negative) Urine Nitrite Neg (Negative) Urine Bilirubin Neg (Negative) Urine Urobilinogen 2.0 (<2.0) mg/dL Ur Leukocyte Esterase Sm (Negative) Urine WBC (Auto) 3.0 (0.0-6.0) /HPF Urine RBC (Auto) 1.0 (0.0-6.0) /HPF U Epithel Cells (Auto) 2.0 (0-13.0) /HPF Urine Mucus 2+ /HPF - Radiology Data Radiology results: report reviewed CT ABDOMEN AND PELVIS WITH CONTRAST HISTORY: Left lower quadrant pain, nausea and vomiting COMPARISON: CT of the abdomen and pelvis on 07/24/2014 TECHNIQUE: Routine abdominal and pelvic CT exam performed following intravenous contrast administration. The patient received 100 mL of IV Omnipaque 300. All CT scans at this location are performed using CT dose reduction for ALARA by means of automated exposure control. FINDINGS: CT ABDOMEN: Lung Bases: No significant abnormality. Liver: No significant abnormality. Biliary: Gallbladder is surgically absent. Spleen: No significant abnormality. Unenlarged. Pancreas: No significant abnormality. Adrenals: No significant abnormality. Kidneys: Small 3 mm nonobstructing stones in the lower left kidney. No hydronephrosis or solid renal mass. Lymphatics: No lymphadenopathy. Vasculature: No significant abnormality. Bowel/Peritoneum: No significant abnormality. No free air. No free fluid. CT PELVIC: : The uterus is surgically absent. There are no adnexal masses. Lymphatics: No lymphadenopathy. Osseous Structures: No aggressive appearing osseous lesions. Bilateral total hip arthroplasties present. Additional Findings: None IMPRESSION: 1. No acute findings. 2. Tiny nonobstructing left intrarenal stones without hydronephrosis. - Medical Decision Making 53-year-old female patient here with complaints of nausea/vomiting and abdominal pain starting last night. She reports a new diagnosis of diverticulitis one week ago. Patient states she has not follow-up with gastroenterology as d irected yet, however states she has an appointment on April 27 with an [facility]. Wbc's rbc's are normal. All of her lab findings are also WNL. CT abdomen is without acute findings. Recommend patient follows up with [facility] within the next 3-5 days. Discussed strict return precautions in detail with patient states understanding. Critical care attestation.: If time is entered above; I have spent that time in minutes in the direct care of this critically ill patient, excluding procedure time. ED Disposition Clinical Impression: Abdominal pain Qualifiers: Abdominal location: generalized Qualified Code(s): R10.84 - Generalized abdominal pain Nausea & vomiting Qualifiers: Vomiting type: unspecified Vomiting Intractability: non-intractable Qualified Code(s): R11.2 - Nausea with vomiting, unspecified Disposition: DC-01 TO HOME OR SELFCARE Is pt being admited?: No Condition: Stable Instructions: Abdominal Pain (ED) Prescriptions: Famotidine [Pepcid] 20 mg PO BID #20 tablet Ondansetron [Zofran Odt] 4 mg PO Q8HR PRN #15 tab.rapdis PRN Reason: Nausea Referrals: RJ PLUMMER MD [Primary Care Provider] - 3-5 Days [facility] [Provider Group] - 2-3 Days
[2019-04-11] MEDS ORDERED: FAMOTIDINE 20 MG/2 ML INJ IV ONE (08:05)
[2019-04-11] MEDS ORDERED: diphenhydrAMINE 25 MG CAP PO ONE (08:05)
--- NOTE | 2019-04-11 09:11 | Cat Scan Report ---
CT ABDOMEN AND PELVIS WITH CONTRAST HISTORY: Left lower quadrant pain, nausea and vomiting COMPARISON: CT of the abdomen and pelvis on 07/24/2014 TECHNIQUE: Routine abdominal and pelvic CT exam performed following intravenous contrast administrat ion. The patient received 100 mL of IV Omnipaque 300. All CT scans at this location are performed usi ng CT dose reduction for ALARA by means of automated exposure control. FINDINGS: CT ABDOMEN: Lung Bases: No significant abnormality. Liver: No significant abnormality. Biliary: Gallbladder is surgically absent. Spleen: No significant abnormality. Unenlarged. Pancreas: No significant abnormality. Adrenals: No significant abnormality. Kidneys: Small 3 mm nonobstructing stones in the lower left kidney. No hydronephrosis or solid renal mass. Lymphatics: No lymphadenopathy. Vasculature: No significant abnormality. Bowel/Peritoneum: No significant abnormality. No free air. No free fluid. CT PELVIC: : The uterus is surgically absent. There are no adnexal masses. Lymphatics: No lymphadenopathy. Osseous Structures: No aggressive appearing osseous lesions. Bilateral total hip arthroplasties prese nt. Additional Findings: None IMPRESSION: 1. No acute findings. 2. Tiny nonobstructing left intrarenal stones without hydronephrosis. Signer Name: Dell Steiner MD Signed: 04/11/2019 9:06 AM Workstation Name: [email or web address]
[2019-04-11 09:15] VITALS: BP 141/86
[2019-04-11] MEDS ORDERED: SODIUM CHLORIDE 0.9% 1000 ML 1,000 ML IV ONE (09:25)
[2019-04-11] MEDS ORDERED: HYDROcodone/ACETAMINOPHEN 10-325MG TAB PO ONE (09:26)
== END 2019-04-11 10:42 | disposition home or self-care (01) ==
LOC: ED 01:09
DX: R11.2 Nausea with vomiting, unspecified (principal); R10.13 Epigastric pain; I10 Essential (primary) hypertension; M79.7 Fibromyalgia; G43.909 Migraine, unspecified, not intractable, without status migrainosus; F32.9 Major depressive disorder, single episode, unspecified; J45.909 Unspecified asthma, uncomplicated; Z88.1 Allergy status to other antibiotic agents; Z88.8 Allergy status to other drugs, medicaments and biological substances; Z79.899 Other long term (current) drug therapy; Z88.5 Allergy status to narcotic agent; Z90.49 Acquired absence of other specified parts of digestive tract; Z90.710 Acquired absence of both cervix and uterus
CPT/HCPCS: 36415; 74177; 80053; 81001; 83690; 85025; 96361; 96374; 96375; 99284; J2270; J2405; J7030; Q9967

== ENCOUNTER 2019-05-18 16:29 | Emergency (ER) | payer BC, MEDICAID ==
--- NOTE | 2019-05-18 20:48 | Event Note ---
ED Screening Note Date of service: 05/18/19 Time: 20:46 ED Screening Note: Pt c/o low back pain radiating down both legs x 4 days hx of herniated discs in back and 2 back surgeries-was supposed to have back surgery again but has not due to complications This initial assessment/diagnostic orders/clinical plan/treatment(s) is/are subject to change based on patients health status, clinical progression and re- assessment by fellow clinical providers in the ED. Further treatment and workup at subsequent clinical providers discretion. Patient/guardian urged not to elope from the ED as their condition may be serious if not clinically assessed and managed. Initial orders include: xr
--- NOTE | 2019-05-18 21:43 | XRay Report ---
LUMBAR SPINE 3 VIEWS INDICATION / CLINICAL INFORMATION: pain, hx of herniated discs. COMPARISON: None available. FINDINGS: No fracture, subluxation or other significant abnormality. Signer Name: Tanmay Canseco MD Signed: 05/18/2019 9:38 PM Workstation Name: [id number]
--- NOTE | 2019-05-19 01:25 | Emergency Department Report ---
ED Back Pain/Injury HPI - General Chief Complaint: Back Pain/Injury Stated Complaint: BACK PAIN/N/V Time Seen by Provider: 05/18/19 20:46 Source: patient Limitations: No Limitations - History of Present Illness Initial Comments: 54-year-old -[place] female with a past medical history of chronic back pain with utilization of pain management presents to emergency department complaining of spontaneous evolution of lower back pain associated with a dull throbbing discomfort worse with range of motion. She reports no loss of bowel bladder no saddle paresthesia no worsening symptoms no change in characteristic no reinjury. She reports having a long list of allergies and request to be treated with morphine injection. No fever, chills, sweats no chest pain or palpitations MD Complaint: back pain -: Gradual, days(s) (last couple days) Similar Symptoms Previously: Yes Place: home Radiation: none Severity: mild Quality: dull, aching Improves With: none Worsens With: movement Associated Symptoms: denies: cough, difficulty urinating, diaphoresis, incontinence, fever/chills, constipation, headaches, loss of appetite, malaise, nausea/vomiting, rash, seizure, shortness of breath, syncope - Related Data Home Medications Medication Instructions Recorded Confirmed Last Taken Linaclotide [Linzess] 145 mg PO QDAY 01/12/19 01/12/19 01/11/19 Previous Rx's Medication Instructions Recorded Last Taken Type Butalb/Acetamin/Caff 50-325-40 2 tab PO Q4H PRN #14 tablet 01/13/19 Unknown Rx [Fioricet 50-325-40] Topiramate [Topamax] 25 mg PO Q12HR #14 tablet 01/13/19 Unknown Rx Butalb/Acetaminophen/Caffeine 1 cap PO Q6HR PRN #12 cap 02/18/19 Unknown Rx [Fioricet 50-300-40 mg CAP] Butalb/Acetamin/Caff 50-325-40 1 tab PO Q6HR PRN #24 tab 04/02/19 Unknown Rx [Fioricet] Famotidine [Pepcid] 20 mg PO BID #20 tablet 04/11/19 Unknown Rx Ondansetron [Zofran Odt] 4 mg PO Q8HR PRN #15 tab.rapdis 04/11/19 Unknown Rx methOCARBAMOL [Robaxin TAB] 750 mg PO Q8H PRN #14 tablet 05/19/19 Unknown Rx Allergies Allergy/AdvReac Type Severity Reaction Status Date / Time calcium carbonate [From DHEA] Allergy Rash Verified 08/26/15 18:13 haloperidol [From Haldol] Allergy Unknown Verified 05/18/19 20:52 ketorolac tromethamine Allergy Bleeding Verified 08/26/15 18:13 [From Toradol] levofloxacin [From Levaquin] Allergy Rash Verified 01/29/16 02:38 magnesium Allergy Rash Verified 02/03/16 18:15 meperidine [From Demerol] Allergy Unknown Verified 05/18/19 20:52 metoclopramide HCl Allergy Hives Verified 08/26/15 18:13 [From Reglan] prasterone (DHEA) [From DHEA] Allergy Rash Verified 08/26/15 18:13 prochlorperazine Allergy Unknown Verified 08/26/15 18:13 [From Compazine] prochlorperazine edisylate Allergy Unknown Verified 08/26/15 18:13 [From Compazine] prednisone AdvReac Hives Verified 08/26/15 18:13 ED Review of Systems ROS: Stated complaint: BACK PAIN/N/V Other details as noted in HPI Comment: All other systems reviewed and negative ED Past Medical Hx - Past Medical History Hx Hypertension: Yes Hx Congestive Heart Failure: No Hx Diabetes: No Hx Sickle Cell Disease: No Hx Headaches / Migraines: Yes Hx Kidney Stones: Yes Hx Psychiatric Treatment: Yes (DEPRESSION) Hx Asthma: Yes Hx COPD: No Hx HIV: No Additional medical history: MVP, fibromyalgia. IBS - Surgical History Past Surgical History?: Yes Hx Cholecystectomy: Yes Hx Appendectomy: Yes Additional Surgical History: Hysterectomy. KIDNEY STONES REMOVED - Social History Smoking Status: Never Smoker Substance Use Type: None - Medications Home Medications: Home Medications Medication Instructions Recorded Confirmed Last Taken Type Linaclotide [Linzess] 145 mg PO QDAY 01/12/19 01/12/19 01/11/19 History Butalb/Acetamin/Caff 50-325-40 2 tab PO Q4H PRN #14 tablet 01/13/19 Unknown Rx [Fioricet 50-325-40] Topiramate [Topamax] 25 mg PO Q12HR #14 tablet 01/13/19 Unknown Rx Butalb/Acetaminophen/Caffeine 1 cap PO Q6HR PRN #12 cap 02/18/19 Unknown Rx [Fioricet 50-300-40 mg CAP] Butalb/Acetamin/Caff 50-325-40 1 tab PO Q6HR PRN #24 tab 04/02/19 Unknown Rx [Fioricet] Famotidine [Pepcid] 20 mg PO BID #20 tablet 04/11/19 Unknown Rx Ondansetron [Zofran Odt] 4 mg PO Q8HR PRN #15 tab.rapdis 04/11/19 Unknown Rx methOCARBAMOL [Robaxin TAB] 750 mg PO Q8H PRN #14 tablet 05/19/19 Unknown Rx ED Physical Exam - General Limitations: No Limitations General appearance: alert, in no apparent distress - Head Head exam: Present: atraumatic, normocephalic - Eye Eye exam: Present: normal appearance, PERRL, EOMI Pupils: Present: normal accommodation - ENT ENT exam: Present: normal exam, normal orophraynx, mucous membranes moist, TM's normal bilaterally, normal external ear exam - Neck Neck exam: Present: normal inspection, full ROM. Absent: meningismus, lymphadenopathy - Respiratory Respiratory exam: Present: normal lung sounds bilaterally. Absent: respiratory distress, rales, rhonchi, chest wall tenderness, accessory muscle use, decreased breath sounds - Cardiovascular Cardiovascular Exam: Present: regular rate, normal rhythm. Absent: bradycardia, systolic murmur, diastolic murmur, rubs, gallop - GI/Abdominal GI/Abdominal exam: Present: soft, normal bowel sounds - Extremities Exam Extremities exam: Present: normal inspection - Back Exam Back exam: Present: normal inspection, tenderness, paraspinal tenderness, vertebral tenderness, other. Absent: CVA tenderness (R), CVA tenderness (L), muscle spasm - Neurological Exam Neurological exam: Present: alert, oriented X3, CN II-XII intact - Psychiatric Psychiatric exam: Present: normal affect, normal mood - Skin Skin exam: Present: warm, dry, intact, normal color. Absent: rash ED Course Vital Signs 05/18/19 05/18/19 05/19/19 19:31 20:48 02:10 Temperature 98.5 F 98.5 F Pulse Rate 76 77 72 Respiratory 18 18 18 Rate Blood Pressure 169/66 169/66 Blood Pressure 152/81 [Left] O2 Sat by Pulse 100 100 100 Oximetry ED Medical Decision Making - Radiology Data Radiology results: report reviewed [facility] [address] [place] [address] XRay Report Signed Patient: JOE ALVAREZ MR#: [id number] : 1965 Acct:[id number] Age/Sex: 54 / F ADM Date: 05/18/19 Loc: ED Attending Dr: Ordering Physician: FANNIE OCELLO Date of Service: 05/18/19 Procedure(s): XR spine lumbosacral 2-3V Accession Number(s): [id number] cc: FANNIE COELLO Fluoro Time In Minutes: LUMBAR SPINE 3 VIEWS INDICATION / CLINICAL INFORMATION: pain, hx of herniated discs. COMPARISON: None available. FINDINGS: No fracture, subluxation or other significant abnormality. Signer Name: Tanmay Canseco MD Signed: 05/18/2019 9:38 PM Workstation Name: [id number] Transcribed By: TM Dictated By: Tanmay Canseco MD Electronically Authenticated By: Tanmay Canseco MD Signed Date/Time: 05/18/192137 DD/ 36 TD/TT: - Medical Decision Making Mrs. Alvarez is a 54-year-old female with a known past medical history of chronic back pain. Clinically this patient can be ruled out for serious pathology given there is a completely normal neurological exam, no reported history of IV drug use, and no history of bowel or bladder incontinence, no perianal numbness/tingling, no constipation or urinary retention. She is ambulatory under her own power with no assistance. pain was adequately controlled, the patient was able to ambulate and be discharged in stable condi tion with anticipatory guidance provided. I estimate there is LOW risk for ABDOMINAL AORTIC ANEURYSM, CAUDA EQUINA SYNDROME, EPIDURAL MASS LESION, SPINAL STENOSIS, OR HERNIATED DISK CAUSING SEVERE STENOSIS, thus I consider the discharge disposition reasonable. We have discussed the diagnosis and risks, and we agree with discharging home to follow- up with their primary doctor. We also discussed returning to the Emergency Department immediately if new or worsening symptoms occur. We have discussed the symptoms which are most concerning (e.g., saddle anesthesia, urinary or bowel incontinence or retention, changing or worsening pain) that necessitate immediate return Critical care attestation.: If time is entered above; I have spent that time in minutes in the direct care of this critically ill patient, excluding procedure time. ED Disposition Clinical Impression: Chronic back pain greater than 3 months duration Disposition: TO HOME OR SELFCARE Is pt being admited?: No Does the pt Need Aspirin: No Condition: Stable Instructions: Chronic Pain (ED), Back Pain (ED) Prescriptions: methOCARBAMOL [Robaxin TAB] 750 mg PO Q8H PRN #14 tablet PRN Reason: Pain, Moderate (4-6) Referrals: RJ PLUMMER MD [Primary Care Provider] - 3-5 Days
[2019-05-19] MEDS ORDERED: MORPHINE 4 MG/1 ML INJ IM STA (01:32)
[2019-05-19] MEDS ORDERED: ONDANSETRON 4 MG ODT TAB PO ONE (01:37)
[2019-05-19] MEDS ORDERED: ONDANSETRON 4 MG ODT TAB ONE (01:40)
[2019-05-19] MEDS ORDERED: diphenhydrAMINE 25 MG CAP PO ONE (01:49)
[2019-05-19 02:10] VITALS: BP 152/81
== END 2019-05-19 02:10 | disposition home or self-care (01) ==
LOC: ED 16:29
DX: G89.29 Other chronic pain (principal); M54.5 Low back pain; I10 Essential (primary) hypertension; G43.909 Migraine, unspecified, not intractable, without status migrainosus; N20.0 Calculus of kidney; J45.909 Unspecified asthma, uncomplicated; Z90.49 Acquired absence of other specified parts of digestive tract; Z90.710 Acquired absence of both cervix and uterus; Z79.899 Other long term (current) drug therapy; Z98.890 Other specified postprocedural states; Z88.8 Allergy status to other drugs, medicaments and biological substances
CPT/HCPCS: 72100; 96372; 99283; J2270; Q0162

== ENCOUNTER 2019-05-31 11:54 | Emergency (ER) | payer BC, MEDICAID ==
--- NOTE | 2019-05-31 12:10 | Event Note ---
ED Screening Note Date of service: 05/31/19 Time: 12:08 ED Screening Note: Pt complains of generalized body aches, N/V, back pain, and ankle swelling x 3 weeks hx of fibromyalgia, MVP This initial assessment/diagnostic orders/clinical plan/treatment(s) is/are subject to change based on patients health status, clinical progression and re- assessment by fellow clinical providers in the ED. Further treatment and workup at subsequent clinical providers discretion. Patient/guardian urged not to elope from the ED as their condition may be serious if not clinically assessed and managed. Initial orders include: labs
[2019-05-31 13:18] LABS: Basophils % (Auto) 0.4 % (0.0-1.8); Eosinophils # (Auto) 0.1 K/mm3 (0.0-0.4); Eosinophils % (Auto) 1.7 % (0.0-4.3); Hematocrit 37.6 % (30.3-42.9); Hemoglobin 12.7 gm/dl (10.1-14.3); Lymphocytes # (Auto) 1.1 K/mm3 (1.2-5.4); Mean Corpuscular HGB Conc 34 % (30-34); Mean Corpuscular Volume 91 fl (79-97); Monocytes # (Auto) 0.3 K/mm3 (0.0-0.8); Monocytes % (Auto) 7.1 % (0.0-7.3); Platelet Count 240 K/mm3 (140-440); Red Blood Count 4.15 M/mm3 (3.65-5.03); Red Cell Distribution Width 13.2 % (13.2-15.2)
[2019-05-31 13:31] LABS: BUN/Creatinine Ratio 10; Blood Urea Nitrogen 8 mg/dL (7-17); Calcium 9.6 mg/dL (8.4-10.2)
[2019-05-31 13:32] LABS: Alanine Aminotransferase 11 units/L (7-56); Albumin 4.3 g/dL (3.9-5); Hemolysis Index 7
[2019-05-31] MEDS ORDERED: traMADol 50 MG TAB PO ONE (16:08)
[2019-05-31] MEDS ORDERED: dexAMETHasone 4 MG/ML VIAL IM ONE (16:08)
[2019-05-31] MEDS ORDERED: HYDROcodone/ACETAMINOPHEN 5-325 MG TAB PO ONE (16:16)
--- NOTE | 2019-05-31 16:23 | Emergency Department Report ---
ED General Adult HPI - General Chief complaint: Pain General Stated complaint: BODY PAIN Time Seen by Provider: 05/31/19 12:08 Source: patient Mode of arrival: Ambulatory Limitations: No Limitations - History of Present Illness Initial comments: patient is a 54-year-old female presents emergency room with complaints of chronic back pain that began to bother her again approximately 3 weeks ago. She states that she also has generalized body pain. Patient has a history of fibromyalgia and herniated disc. Patient states that she saw an orthopedic doc tor and has a MRI scheduled. She states that she has been taking Zanaflex and Tylenol with codeine and using lidocaine patches. She denies any acute fall or injury. She denies any numbness, weakness, bowel or bladder incontinence, fever. She states that when the pain is uncomfortable she has occasional nausea. - Related Data Home Medications Medication Instructions Recorded Confirmed Last Taken Linaclotide [Linzess] 145 mg PO QDAY 01/12/19 01/12/19 01/11/19 Previous Rx's Medication Instructions Recorded Last Taken Type Butalb/Acetamin/Caff 50-325-40 2 tab PO Q4H PRN #14 tablet 01/13/19 Unknown Rx [Fioricet 50-325-40] Topiramate [Topamax] 25 mg PO Q12HR #14 tablet 01/13/19 Unknown Rx Butalb/Acetaminophen/Caffeine 1 cap PO Q6HR PRN #12 cap 02/18/19 Unknown Rx [Fioricet 50-300-40 mg CAP] Butalb/Acetamin/Caff 50-325-40 1 tab PO Q6HR PRN #24 tab 04/02/19 Unknown Rx [Fioricet] Famotidine [Pepcid] 20 mg PO BID #20 tablet 04/11/19 Unknown Rx Ondansetron [Zofran Odt] 4 mg PO Q8HR PRN #15 tab.rapdis 04/11/19 Unknown Rx methOCARBAMOL [Robaxin TAB] 750 mg PO Q8H PRN #14 tablet 05/19/19 Unknown Rx Allergies Allergy/AdvReac Type Severity Reaction Status Date / Time calcium carbonate [From DHEA] Allergy Rash Verified 08/26/15 18:13 haloperidol [From Haldol] Allergy Unknown Verified 05/18/19 20:52 ketorolac tromethamine Allergy Bleeding Verified 08/26/15 18:13 [From Toradol] levofloxacin [From Levaquin] Allergy Rash Verified 01/29/16 02:38 magnesium Allergy Rash Verified 02/03/16 18:15 meperidine [From Demerol] Allergy Unknown Verified 05/18/19 20:52 metoclopramide HCl Allergy Hives Verified 08/26/15 18:13 [From Reglan] prasterone (DHEA) [From DHEA] Allergy Rash Verified 08/26/15 18:13 prochlorperazine Allergy Unknown Verified 08/26/15 18:13 [From Compazine] prochlorperazine edisylate Allergy Unknown Verified 08/26/15 18:13 [From Compazine] prednisone AdvReac Hives Verified 08/26/15 18:13 ED Review of Systems ROS: Stated complaint: BODY PAIN Other details as noted in HPI Comment: All other systems reviewed and negative ED Past Medical Hx - Past Medical History Hx Hypertension: Yes Hx Congestive Heart Failure: No Hx Diabetes: No Hx Sickle Cell Disease: No Hx Headaches / Migraines: Yes Hx Kidney Stones: Yes Hx Psychiatric Treatment: Yes (DEPRESSION) Hx Asthma: Yes Hx COPD: No Hx HIV: No Additional medical history: MVP, fibromyalgia. IBS - Surgical History Hx Cholecystectomy: Yes Hx Appendectomy: Yes Additional Surgical History: Hysterectomy. KIDNEY STONES REMOVED - Social History Smoking Status: Never Smoker Substance Use Type: None - Medications Home Medications: Home Medications Medication Instructions Recorded Confirmed Last Taken Type Linaclotide [Linzess] 145 mg PO QDAY 01/12/19 01/12/19 01/11/19 History Butalb/Acetamin/Caff 50-325-40 2 tab PO Q4H PRN #14 tablet 01/13/19 Unknown Rx [Fioricet 50-325-40] Topiramate [Topamax] 25 mg PO Q12HR #14 tablet 01/13/19 Unknown Rx Butalb/Acetaminophen/Caffeine 1 cap PO Q6HR PRN #12 cap 02/18/19 Unknown Rx [Fioricet 50-300-40 mg CAP] Butalb/Acetamin/Caff 50-325-40 1 tab PO Q6HR PRN #24 tab 04/02/19 Unknown Rx [Fioricet] Famotidine [Pepcid] 20 mg PO BID #20 tablet 04/11/19 Unknown Rx Ondansetron [Zofran Odt] 4 mg PO Q8HR PRN #15 tab.rapdis 04/11/19 Unknown Rx methOCARBAMOL [Robaxin TAB] 750 mg PO Q8H PRN #14 tablet 05/19/19 Unknown Rx ED Physical Exam - General Limitations: No Limitations General appearance: alert, in no apparent distress - Head Head exam: Present: atraumatic, normocephalic - Eye Eye exam: Present: normal appearance - ENT ENT exam: Present: mucous membranes moist - Neck Neck exam: Present: normal inspection, full ROM. Absent: tenderness - Respiratory Respiratory exam: Present: normal lung sounds bilaterally. Absent: respiratory distress, wheezes, rales, rhonchi, stridor, chest wall tenderness, accessory muscle use, decreased breath sounds, prolonged expiratory - Cardiovascular Cardiovascular Exam: Present: regular rate, normal rhythm, normal heart sounds. Absent: systolic murmur, diastolic murmur, rubs, gallop - Back Exam Back exam: Present: normal inspection, full ROM, paraspinal tenderness (bilateral lumbar paraspinal muscular TTP, no midline C-spine, T-spine or L- spine tenderness, no step offs, no deformities ). Absent: vertebral tenderness - Neurological Exam Neurological exam: Present: alert, oriented X3, CN II-XII intact, normal gait, other (equal physical therapy professor strength, 5/5 strength in the BUE/BLE, able to hold each leg up for 10 seconds, sensation intact throughout, no focal neuro deficit). Absent: motor sensory deficit - Psychiatric Psychiatric exam: Present: normal affect, normal mood - Skin Skin exam: Present: warm, dry, intact ED Course Vital Signs 05/31/19 05/31/19 05/31/19 12:08 16:10 17:37 Temperature 98.6 F 98.2 F Pulse Rate 84 78 Respiratory 20 16 16 Rate Blood Pressure 136/85 Blood Pressure 122/64 [Right] O2 Sat by Pulse 100 100 Oximetry ED Medical Decision Making - Lab Data Result diagrams: 05/31/19 12:40 05/31/19 12:40 Lab Results 05/31/19 05/31/19 05/31/19 Range/Units 12:40 12:40 15:22 WBC 4.2 L (4.5-11.0) K/mm3 RBC 4.15 (3.65-5.03) M/mm3 Hgb 12.7 (10.1-14.3) gm/dl Hct 37.6 (30.3-42.9) % MCV 91 (79-97) fl MCH 31 (28-32) pg MCHC 34 (30-34) % RDW 13.2 (13.2-15.2) % Plt Count 240 (140-440) K/mm3 Lymph % (Auto) 27.0 (13.4-35.0) % Heard % (Auto) 7.1 (0.0-7.3) % Eos % (Auto) 1.7 (0.0-4.3) % Baso % (Auto) 0.4 (0.0-1.8) % Lymph # 1.1 L (1.2-5.4) K/mm3 Heard # 0.3 (0.0-0.8) K/mm3 Eos # 0.1 (0.0-0.4) K/mm3 Baso # 0.0 (0.0-0.1) K/mm3 Seg Neutrophils % 63.8 (40.0-70.0) % Seg Neutrophils # 2.7 (1.8-7.7) K/mm3 Sodium 140 (137-145) mmol/L Potassium 4.2 (3.6-5.0) mmol/L Chloride 101.5 (98-107) mmol/L Carbon Dioxide 27 (22-30) mmol/L Anion Gap 16 mmol/L BUN 8 (7-17) mg/dL Creatinine 0.8 (0.7-1.2) mg/dL Estimated GFR > 60 ml/min BUN/Creatinine Ratio 10 % Glucose 93 (65-100) mg/dL Calcium 9.6 (8.4-10.2) mg/dL Total Bilirubin 0.30 (0.1-1.2) mg/dL AST 18 (5-40) units/L ALT 11 (7-56) units/L Alkaline Phosphatase 95 (35-129) units/L Total Protein 6.9 (6.3-8.2) g/dL Albumin 4.3 (3.9-5) g/dL Albumin/Globulin Ratio 1.7 % Urine Color Yellow (Yellow) Urine Turbidity Clear (Clear) Urine pH 5.0 (5.0-7.0) Ur Specific Carlin 1.024 (1.003-1.030) Urine Protein <15 mg/dl (Negative) mg/dL Urine Glucose (UA) Neg (Negative) mg/dL Urine Ketones Neg (Negative) mg/dL Urine Blood Neg (Negative) Urine Nitrite Neg (Negative) Urine Bilirubin Neg (Negative) Urine Urobilinogen < 2.0 (<2.0) mg/dL Ur Leukocyte Esterase Sm (Negative) Urine WBC (Auto) 4.0 (0.0-6.0) /HPF Urine RBC (Auto) 3.0 (0.0-6.0) /HPF U Epithel Cells (Auto) 2.0 (0-13.0) /HPF Urine Mucus 2+ /HPF - Medical Decision Making patient is a 54-year-old female presents emergency room with complaints of c hronic back pain that began to bother her again approximately 3 weeks ago. She states that she also has generalized body pain. Patient has a history of fibromyalgia and herniated disc. Patient states that she saw an orthopedic doctor and has a MRI scheduled. She states that she has been taking Zanaflex and Tylenol with codeine and using lidocaine patches. She denies any acute fall or injury. She denies any numbness, weakness, bowel or bladder incontinence, fever. She states that when the pain is uncomfortable she has occasional nausea. ordered for pt to have a tramadol and dexamethasone injection. I was advised by nursing staff that pt states she takes tramadol at home and it has not been helping. pt given one hydrocodone, will not be sending pt home with narcotics. VSS. labs are stable. UA WNL. Patient states she would like something for her nausea, patient given Zofran. Patient has no red flag warning signs of back pain, no trauma, no unexplained weight loss, no neuro deficits, no fever, no IV drug use, no steroid use, no history of cancer. Will have patient follow-up with her orthopedic doctor and continue to taking the medication she was already prescribed by the orthopedic. advised pt Please follow-up with your orthopedic doctor in the next 2-3 days. Please continue taking the medication that you are prescribed by your orthopedic doctor. May use ice pack, heating pad, rest, Epsom salt bath. Return to the emergency room for any new or worsening symptoms. - Differential Diagnosis strain, sprain, DDD, DJD, bulging disc, disc herniation, chronic pain Critical care attestation.: If time is entered above; I have spent that time in minutes in the direct care of this critically ill patient, excluding procedure time. ED Disposition Clinical Impression: Chronic back pain Qualifiers: Back pain location: low back pain Back pain laterality: bilateral Sciatica presence: without sciatica Qualified Code(s): M54.5 - Low back pain Disposition: TO HOME OR SELFCARE Is pt being admited?: No Does the pt Need Aspirin: No Condition: Stable Instructions: Chronic Back Pain (ED) Additional Instructions: Please follow-up with your orthopedic doctor in the next 2-3 days. Please continue taking the medication that you are prescribed by your orthopedic doctor. May use ice pack, heating pad, rest, Epsom salt bath. Return to the emergency room for any new or worsening symptoms. Referrals: your, orthopedic doctor [Other] - 2-3 Days Time of Disposition: 17:12 Print Language: ITALIAN
[2019-05-31 16:38] LABS: Bilirubin,Urine NEG (Negative); Blood,Urine NEG (Negative); Color,Urine Yellow (Yellow); Mucus,Urine 2+ /HPF; Protein,Urine <15 mg/dL mg/dL (Negative); Urobilinogen,Urine < 2.0 mg/dL (<2.0)
[2019-05-31] MEDS ORDERED: ONDANSETRON 4 MG ODT TAB PO ONE (17:11)
[2019-05-31 17:46] VITALS: BP 122/64
== END 2019-05-31 17:52 | disposition home or self-care (01) ==
LOC: ED 11:54
DX: M54.5 Low back pain (principal); G89.29 Other chronic pain; I10 Essential (primary) hypertension; G43.909 Migraine, unspecified, not intractable, without status migrainosus; F32.9 Major depressive disorder, single episode, unspecified; J45.909 Unspecified asthma, uncomplicated; Z90.710 Acquired absence of both cervix and uterus; Z90.49 Acquired absence of other specified parts of digestive tract; Z79.899 Other long term (current) drug therapy; Z88.6 Allergy status to analgesic agent; Z88.8 Allergy status to other drugs, medicaments and biological substances
CPT/HCPCS: 36415; 80053; 81001; 85025; 96372; 99283; J1100; Q0162

== ENCOUNTER 2019-06-26 02:52 | Emergency (ER) | payer BC, MEDICAID ==
[2019-06-26] MEDS ORDERED: HYDROmorphone 1 MG/1 ML INJ IV ONE ×2 (05:00→07:23)
[2019-06-26] MEDS ORDERED: ONDANSETRON 4 MG/2 ML INJ IV ONE (05:00)
[2019-06-26 05:06] LABS: Basophils # (Auto) 0.1 K/mm3 (0.0-0.1); Basophils % (Auto) 1.5 % (0.0-1.8); Hematocrit 39.3 % (30.3-42.9); Hemoglobin 13.5 gm/dl (10.1-14.3); Lymphocytes # (Auto) 0.4 K/mm3 (1.2-5.4); Lymphocytes % (Auto) 7.4 % (13.4-35.0); Mean Corpuscular HGB Conc 34 % (30-34); Mean Corpuscular Volume 91 fl (79-97); Monocytes # (Auto) 0.2 K/mm3 (0.0-0.8); Monocytes % (Auto) 4.1 % (0.0-7.3); Platelet Count 280 K/mm3 (140-440); Red Blood Count 4.34 M/mm3 (3.65-5.03); Red Cell Distribution Width 13.3 % (13.2-15.2)
[2019-06-26] MEDS ORDERED: diphenhydrAMINE 25 MG CAP PO ONE ×2 (05:29→05:30)
[2019-06-26 05:40] LABS: Alanine Aminotransferase 13 units/L (7-56); Albumin 4.8 g/dL (3.9-5); BUN/Creatinine Ratio 11; Blood Urea Nitrogen 10 mg/dL (7-17); Calcium 10.1 mg/dL (8.4-10.2); Hemolysis Index 2
[2019-06-26 05:52] LABS: Bilirubin,Urine NEG (Negative); Blood,Urine MOD (Negative); Color,Urine Yellow (Yellow); Mucus,Urine 3+ /HPF; Urobilinogen,Urine < 2.0 mg/dL (<2.0)
[2019-06-26] MEDS ORDERED: SODIUM CHLORIDE 0.9% 1000 ML 1,000 ML IV ONE (06:11)
--- NOTE | 2019-06-26 06:11 | Emergency Department Report ---
HPI - General Chief Complaint: Abdominal Pain Time Seen by Provider: 06/26/19 05:57 - HPI HPI: 54-year-old female presents to the emergency department with complaint of some lower abdominal pain, nausea and vomiting since last night. The patient says that she has not had a satisfactory bowel movement for the past week. She takes linzess regularly and also took a magnesium citrate. This did not help her symptoms. She denies any diarrhea, fever, vaginal bleeding or discharge, dysuria. She has a past medical history of migraine headaches, hypertension, mitral valve prolapse, IBS, fibromyalgia. No recent travel or sick contacts at home. ED Past Medical Hx - Past Medical History Hx Hypertension: Yes Hx Congestive Heart Failure: No Hx Diabetes: No Hx Sickle Cell Disease: No Hx Headaches / Migraines: Yes Hx Kidney Stones: Yes Hx Psychiatric Treatment: Yes (DEPRESSION) Hx Asthma: Yes Hx COPD: No Hx HIV: No Additional medical history: MVP, fibromyalgia. IBS - Surgical History Hx Cholecystectomy: Yes Hx Appendectomy: Yes Additional Surgical History: Hysterectomy. KIDNEY STONES REMOVED - Social History Smoking Status: Never Smoker Substance Use Type: None - Medications Home Medications: Home Medications Medication Instructions Recorded Confirmed Last Taken Type Linaclotide [Linzess] 145 mg PO QDAY 01/12/19 01/12/19 01/11/19 History Butalb/Acetamin/Caff 50-325-40 2 tab PO Q4H PRN #14 tablet 01/13/19 Unknown Rx [Fioricet 50-325-40] Topiramate [Topamax] 25 mg PO Q12HR #14 tablet 01/13/19 Unknown Rx Butalb/Acetaminophen/Caffeine 1 cap PO Q6HR PRN #12 cap 02/18/19 Unknown Rx [Fioricet 50-300-40 mg CAP] Butalb/Acetamin/Caff 50-325-40 1 tab PO Q6HR PRN #24 tab 04/02/19 Unknown Rx [Fioricet] Famotidine [Pepcid] 20 mg PO BID #20 tablet 04/11/19 Unknown Rx Ondansetron [Zofran Odt] 4 mg PO Q8HR PRN #15 tab.rapdis 04/11/19 Unknown Rx methOCARBAMOL [Robaxin TAB] 750 mg PO Q8H PRN #14 tablet 12/24/19 Unknown Rx Docusate Sodium [Colace] 100 mg PO BID PRN #20 capsule 06/26/19 Unknown Rx Ondansetron [Zofran Odt] 4 mg PO Q8HR PRN #15 tab.rapdis 06/26/19 Unknown Rx ED Review of Systems ROS: Stated complaint: N/V ABD PAIN Other details as noted in HPI Comment: All other systems reviewed and negative Constitutional: denies: chills, fever Eyes: denies: eye pain, vision change ENT: denies: ear pain, throat pain Respiratory: denies: cough, shortness of breath Cardiovascular: denies: chest pain, palpitations Gastrointestinal: abdominal pain, nausea, vomiting Genitourinary: denies: dysuria, discharge Musculoskeletal: denies: back pain, arthralgia Skin: denies: rash, lesions Neurological: denies: headache, weakness Physical Exam - Physical Exam Vital Signs: Vital Signs 06/26/19 06/26/19 06/26/19 03:03 04:41 04:45 Temperature 98.9 F 98.2 F Pulse Rate 126 H 107 H Respiratory 18 19 19 Rate Blood Pressure 120/92 Blood Pressure 131/69 [Right] O2 Sat by Pulse 100 99 99 Oximetry Physical Exam: GENERAL: The patient is well-developed well-nourished. HEENT: Normocephalic. Atraumatic. Patient has moist mucous membranes. EYES: Extraocular motions are intact. NECK: Supple. Trachea is midline. CHEST/LUNGS: Clear to auscultation. There is no respiratory distress noted. HEART/CARDIOVASCULAR: Regular. There is mild tachycardia. There is no murmur. ABDOMEN: Abdomen is soft. Mild lower abdominal tenderness to palpation. No guarding. Patient has normal bowel sounds. There is no abdominal distention. SKIN:Skin is warm and dry. . NEURO: The patient is awake, alert, and oriented. The patient is cooperative. The patient has no focal neurologic deficits. Normal speech. MUSCULOSKELETAL: There is no tenderness or deformity. There is no evidence of acute injury. ED Course Vital Signs 06/26/19 06/26/19 06/26/19 03:03 04:41 04:45 Temperature 98.9 F 98.2 F Pulse Rate 126 H 107 H Respiratory 18 19 19 Rate Blood Pressure 120/92 Blood Pressure 131/69 [Right] O2 Sat by Pulse 100 99 99 Oximetry ED Medical Decision Making - Lab Data Result diagrams: 06/26/19 04:38 06/26/19 04:38 - Radiology Data Radiology results: report reviewed CT abdomen pelvis w con INDICATION: Nausea, vomiting, constipation. TECHNIQUE: All CT scans at this location are performed using the following dose modulation technique: Automated exposure control. Helical slices were obtained through the abdomen and pelvis. 100 cc of Omnipaque 300 is administered. COMPARISON: CT scan dated 04/11/2019 FINDINGS: Abdomen: The lung bases are clear. The liver, spleen, pancreas, adrenal glands, and kidneys show no acute abnormality. There is no obstruction, inflammation, or free air. There are no abnormal fluid collections. There is fluid noted throughout the colon. The colon is mildly distended. There is some fluid noted in nondilated loops of distal small bowel. Pelvis: There is a moderate to large amount stool noted in the rectal vault. Is fluid noted in sigmoid colon. There is no adenopathy. There is no inflammatory change. The patient has bilateral hip arthroplasties creates significant artifact or pelvis. Bone windows, no acute osseous abnormalities are seen. IMPRESSION: 1. There is no obstruction, inflammation, or free air. There is fluid noted throughout the colon and there is some fluid in small bowel. The appearance is suggestive of an enteritis. There is a moderate to large amount of stool in the rectal vault. Signer Name: Bethel Hill MD - Medical Decision Making This patient presents with a two-day history of lower abdominal pain, nausea and vomiting. On examination the abdomen is soft, nondistended and nontoxic in appearance. Her labs have been unremarkable including CBC, CMP and urinalysis. A CT scan of the abdomen and pelvis with IV contrast was done that did not show any acute process. There is a moderate to large amount of stool towards the rectal vault. Patient was given some analgesia, antiemetics and IV fluid resus citation. Upon reevaluation she is feeling improved. She has a history of IBS and this could be consistent with this. The patient is already on Linzess and Colace will be added. She has been instructed to follow-up with her primary care physician and gastroenterology. She will return to the ER if any worsening of her symptoms or any acute distress. - Differential Diagnosis IBS, constipation, bowel obstruction, Colitis Critical Care Time: No Critical care attestation.: If time is entered above; I have spent that time in minutes in the direct care of this critically ill patient, excluding procedure time. ED Disposition Clinical Impression: Abdominal pain Qualifiers: Abdominal location: lower abdomen, unspecified Qualified Code(s): R10.30 - Lower abdominal pain, unspecified Constipation Qualifiers: Constipation type: unspecified constipation type Qualified Code(s): K59.00 - Constipation, unspecified Nausea & vomiting Qualifiers: Vomiting type: unspecified Vomiting Intractability: non-intractable Qualified Code(s): R11.2 - Nausea with vomiting, unspecified Disposition: TO HOME OR SELFCARE Is pt being admited?: No Condition: Stable Instructions: Constipation (ED), High Fiber Diet (ED), Acute Nausea and Vomiting (ED), Abdominal Pain (ED) Additional Instructions: Please follow up with a primary care physician and your watch supervisor. Return to the emergency Department with any worsening of your symptoms or any acute distress. Prescriptions: Docusate Sodium [Colace] 100 mg PO BID PRN #20 capsule PRN Reason: Constipation Ondansetron [Zofran Odt] 4 mg PO Q8HR PRN #15 tab.rapdis PRN Reason: Nausea Referrals: RJ PLUMMER MD [Primary Care Provider] - 2-3 Days [facility] [Provider Group] - 2-3 Days Time of Disposition: 07:44
--- NOTE | 2019-06-26 06:25 | Cat Scan Report ---
CT abdomen pelvis w con INDICATION: Nausea, vomiting, constipation. TECHNIQUE: All CT scans at this location are performed using the following dose modulation technique: Automated exposure control. Helical slices were obtained through the abdomen and pelvis. 100 cc of Omnipaque 30 0 is administered. COMPARISON: CT scan dated 04/11/2019 FINDINGS: Abdomen: The lung bases are clear. The liver, spleen, pancreas, adrenal glands, and kidneys show no a cute abnormality. There is no obstruction, inflammation, or free air. There are no abnormal fluid col lections. There is fluid noted throughout the colon. The colon is mildly distended. There is some fluid noted in nondilated loops of distal small bowel. Pelvis: There is a moderate to large amount stool noted in the rectal vault. Is fluid noted in sigmoi d colon. There is no adenopathy. There is no inflammatory change. The patient has bilateral hip arthr oplasties creates significant artifact or pelvis. Bone windows, no acute osseous abnormalities are seen. IMPRESSION: 1. There is no obstruction, inflammation, or free air. There is fluid noted throughout the colon and there is some fluid in small bowel. The appearance is suggestive of an enteritis. There is a moderate to large amount of stool in the rectal vault. Signer Name: Bethel Hill MD Signed: 06/26/2019 6:21 AM Workstation Name: [id number]
[2019-06-26 07:53] VITALS: BP 121/66
== END 2019-06-26 08:20 | disposition home or self-care (01) ==
LOC: ED 02:52
DX: R10.30 Lower abdominal pain, unspecified (principal); K59.00 Constipation, unspecified; R11.2 Nausea with vomiting, unspecified; I10 Essential (primary) hypertension; N20.0 Calculus of kidney; F32.9 Major depressive disorder, single episode, unspecified; J45.909 Unspecified asthma, uncomplicated; Z90.49 Acquired absence of other specified parts of digestive tract; Z90.710 Acquired absence of both cervix and uterus; Z98.890 Other specified postprocedural states; Z79.899 Other long term (current) drug therapy; Z88.8 Allergy status to other drugs, medicaments and biological substances
CPT/HCPCS: 36415; 74177; 80053; 81001; 83690; 85025; 87086; 96361; 96374; 96375; 96376; 99284; J1170; J2405; J7030; Q9967

== ENCOUNTER 2019-07-22 10:22 | Emergency (ER) | payer BC, MEDICAID ==
[2019-07-22 11:52] LABS: Bilirubin,Urine NEG (Negative); Blood,Urine NEG (Negative); Color,Urine Yellow (Yellow); Mucus,Urine FEW /HPF; Protein,Urine <15 mg/dL mg/dL (Negative); Urobilinogen,Urine < 2.0 mg/dL (<2.0)
[2019-07-22 12:28] LABS: Basophils % (Auto) 0.5 % (0.0-1.8); Eosinophils % (Auto) 0.7 % (0.0-4.3); Hematocrit 40.3 % (30.3-42.9); Hemoglobin 13.4 gm/dl (10.1-14.3); Lymphocytes % (Auto) 20.9 % (13.4-35.0); Mean Corpuscular HGB Conc 33 % (30-34); Mean Corpuscular Volume 91 fl (79-97); Monocytes # (Auto) 0.3 K/mm3 (0.0-0.8); Monocytes % (Auto) 5.2 % (0.0-7.3); Platelet Count 262 K/mm3 (140-440); Red Blood Count 4.41 M/mm3 (3.65-5.03); Red Cell Distribution Width 13.1 % (13.2-15.2)
[2019-07-22 13:03] LABS: Alanine Aminotransferase 13 units/L (7-56); Albumin 4.4 g/dL (3.9-5); BUN/Creatinine Ratio 11; Blood Urea Nitrogen 9 mg/dL (7-17); Calcium 9.9 mg/dL (8.4-10.2); Hemolysis Index 2
[2019-07-22] MEDS ORDERED: SODIUM CHLORIDE 0.9% 1000 ML 1,000 ML IV ONE (13:54)
[2019-07-22] MEDS ORDERED: dexAMETHasone 4 MG/ML VIAL IV ONE (13:54)
[2019-07-22] MEDS ORDERED: ONDANSETRON 4 MG/2 ML INJ IV ONE ×2 (13:54→15:13)
--- NOTE | 2019-07-22 13:54 | Emergency Department Report ---
ED Headache HPI - General Chief Complaint: Abdominal Pain Stated Complaint: MIGRAINE/ABD PAIN/VOMITING Time Seen by Provider: 07/22/19 13:43 Source: patient Exam Limitations: no limitations - History of Present Illness Initial Comments: Patient is a 54-year-old female that comes to the ER complaining of a migraine headache she has photophobia. She induces vomiting today. She denies any head trauma. Patient does follow with a neurologist and pain clinic. Patient not had a candid conversation about her request for opiates. She does see a chronic pain doctor and is under pain contract. She states that she has been fired from a pain clinic before for getting narcotics in the emergency room. I told her we would attempt to break her pain with nonnarcotic medications. She is allergic to Toradol. She does not have Solu-Medrol listed as an allergy on admission to the ER but when offered Solu-Medrol she states that she was allergic to it. Patient's vital signs are stable. She is not actively vomiting on exam. Heart rate is 90. She has no focal deficit on exam. PMH fibromyalgia migraines rx tizamide linzess percocet zofran Quality: mild Recent Head Trauma: no recent headache/trauma Modifying Factors: improves with: exposure to light Associated Symptoms: denies: denies symptoms, confusion, fatigue, facial pain, fever/chills, flushing, loss of consciousness, nausea/vomiting, nasal congestion, nasal drainage, numbness in legs/feet, rash, seizures, sinus infection, stiff neck, vision changes, weakness, other Allergies/Adverse Reactions: Allergies calcium carbonate [From DHEA] Allergy (Verified 08/26/15 18:13) Rash haloperidol [From Haldol] Allergy (Verified 05/18/19 20:52) Unknown ketorolac tromethamine [From Toradol] Allergy (Verified 08/26/15 18:13) Bleeding levofloxacin [From Levaquin] Allergy (Verified 01/29/16 02:38) Rash magnesium Allergy (Verified 02/03/16 18:15) Rash meperidine [From Demerol] Allergy (Verified 05/18/19 20:52) Unknown metoclopramide HCl [From Reglan] Allergy (Verified 08/26/15 18:13) Hives prasterone (DHEA) [From DHEA] Allergy (Verified 08/26/15 18:13) Rash prochlorperazine [From Compazine] Allergy (Verified 08/26/15 18:13) Unknown prochlorperazine edisylate [From Compazine] Allergy (Verified 08/26/15 18:13) Unknown prednisone Adverse Reaction (Verified 08/26/15 18:13) Hives Home Medications: Ambulatory Orders Linaclotide [Linzess] 145 mg PO QDAY 01/12/19 Topiramate [Topamax] 25 mg PO Q12HR #14 tablet 01/13/19 Butalb/Acetamin/Caff 50-325-40 [Fioricet] 1 tab PO Q6HR PRN #24 tab 04/02/19 Famotidine [Pepcid] 20 mg PO BID #20 tablet 04/11/19 methOCARBAMOL [Robaxin TAB] 750 mg PO Q8H PRN #14 tablet 05/19/19 Docusate Sodium [Colace] 100 mg PO BID PRN #20 capsule 06/26/19 ED Review of Systems ROS: Stated complaint: MIGRAINE/ABD PAIN/VOMITING Other details as noted in HPI Comment: All other systems reviewed and negative ED Past Medical Hx - Past Medical History Previous Medical History?: Yes Hx Hypertension: Yes Hx Congestive Heart Failure: No Hx Diabetes: No Hx Sickle Cell Disease: No Hx Headaches / Migraines: Yes Hx Kidney Stones: Yes Hx Psychiatric Treatment: Yes (DEPRESSION) Hx Asthma: Yes Hx COPD: No Hx HIV: No Additional medical history: MVP, fibromyalgia. IBS - Surgical History Past Surgical History?: Yes Hx Cholecystectomy: Yes Hx Appendectomy: Yes Additional Surgical History: Hysterectomy. KIDNEY STONES REMOVED - Family History Family history: no significant - Social History Smoking Status: Never Smoker Substance Use Type: None - Medications Home Medications: Home Medications Medication Instructions Recorded Confirmed Last Taken Type Linaclotide [Linzess] 145 mg PO QDAY 01/12/19 01/12/19 01/11/19 History Topiramate [Topamax] 25 mg PO Q12HR #14 tablet 01/13/19 Unknown Rx Butalb/Acetamin/Caff 50-325-40 1 tab PO Q6HR PRN #24 tab 04/02/19 Unknown Rx [Fioricet] Famotidine [Pepcid] 20 mg PO BID #20 tablet 04/11/19 Unknown Rx methOCARBAMOL [Robaxin TAB] 750 mg PO Q8H PRN #14 tablet 05/19/19 Unknown Rx Docusate Sodium [Colace] 100 mg PO BID PRN #20 capsule 06/26/19 Unknown Rx ED Physical Exam - General Limitations: No Limitations General appearance: alert, in no apparent distress - Head Head exam: Present: atraumatic, normocephalic - Eye Eye exam: Present: normal appearance - ENT ENT exam: Present: mucous membranes moist - Neck Neck exam: Present: normal inspection - Respiratory Respiratory exam: Present: normal lung sounds bilaterally. Absent: respiratory distress - Cardiovascular Cardiovascular Exam: Present: regular rate, normal rhythm. Absent: systolic murmur, diastolic murmur, rubs, gallop - GI/Abdominal GI/Abdominal exam: Present: soft, normal bowel sounds - Extremities Exam Extremities exam: Present: normal inspection - Back Exam Back exam: Present: normal inspection - Neurological Exam Neurological exam: Present: alert, oriented X3 - Psychiatric Psychiatric exam: Present: normal affect, normal mood - Skin Skin exam: Present: warm, dry, intact, normal color. Absent: rash ED Course Vital Signs 07/22/19 11:00 Temperature 98.6 F Pulse Rate 94 H Respiratory 18 Rate Blood Pressure 123/50 O2 Sat by Pulse 100 Oximetry ED Medical Decision Making - Lab Data Result diagrams: 07/22/19 11:23 07/22/19 11:23 - Medical Decision Making no focal neuro def NS/decadron/zofran see allergies added solumedrol to list when I told her we would give her solumedrol Pt educated on her pain management contract. No narcs will be given Vital Signs 07/22/19 11:00 Temperature 98.6 F Pulse Rate 94 H Respiratory 18 Rate Blood Pressure 123/50 O2 Sat by Pulse 100 Oximetry dc home with follow up with her pain MD - Differential Diagnosis migraine/ro cva Critical care attestation.: If time is entered above; I have spent that time in minutes in the direct care of this critically ill patient, excluding procedure time. ED Disposition Clinical Impression: Status migrainosus, Drug-seeking behavior, Fibromyalgia Disposition: DC-01 TO HOME OR SELFCARE Is pt being admited?: No Does the pt Need Aspirin: No Condition: Stable Instructions: Migraine Headache (ED) Additional Instructions: continue home meds follow up with pain MD DORA Referrals: RJ PLUMMER MD [Primary Care Provider] - 3-5 Days Time of Disposition: 13:54
[2019-07-22 16:28] VITALS: BP 138/74
[2019-07-22] MEDS ORDERED: ACETAMINOPHEN 500 MG TAB PO ONE (16:46)
== END 2019-07-22 16:54 | disposition home or self-care (01) ==
LOC: ED 10:22
DX: G43.901 Migraine, unspecified, not intractable, with status migrainosus (principal); R11.10 Vomiting, unspecified; M79.7 Fibromyalgia; I10 Essential (primary) hypertension; F32.9 Major depressive disorder, single episode, unspecified; J45.909 Unspecified asthma, uncomplicated; I34.1 Nonrheumatic mitral (valve) prolapse; K58.9 Irritable bowel syndrome, unspecified; Z76.5 Malingerer [conscious simulation]; Z98.890 Other specified postprocedural states; Z87.442 Personal history of urinary calculi; Z90.49 Acquired absence of other specified parts of digestive tract; Z90.710 Acquired absence of both cervix and uterus; Z88.8 Allergy status to other drugs, medicaments and biological substances
CPT/HCPCS: 36415; 80053; 81001; 83690; 85025; 96361; 96374; 96375; 96376; 99283; J1100; J2405; J7030